=== PATIENT | female | born 1955 | race Caucasian/White ===

== ENCOUNTER 2020-03-15 15:13 | Outpatient (CLI) | payer BC, SELFPAY ==
--- NOTE | ~2020-03-15 | MM_ITS ---
EXAMINATION: MM screening samuel BI w brenda HISTORY: Screening mammogram TECHNIQUE: Craniocaudal and mediolateral oblique 3-D tomosynthesis images were obtained and synthetic 2-D images were generated. CAD analysis was submitted and interpreted. COMPARISON: 01/09/2019, 11/22/2017, 05/25/2016 bilateral digital screening mammogram examinations BREAST PARENCHYMAL COMPOSITION: There are scattered areas of fibroglandular density. FINDINGS: There is no evidence of suspicious mass, calcification, or architectural distortion to sugg est malignancy in either breast. There has been no suspicious interval change. IMPRESSION: 1. No mammographic evidence of malignancy. 2. Recommend routine screening mammography in one year. BI-RADS Category 1: Negative Reviewed, dictated and finalized at location A.
== END 2020-03-15 15:14 | disposition home or self-care (01) ==
LOC: ANHIMG 15:18
PROVIDERS: PCP Internal Medicine; Visit Provider Nurse Practitioner Obstetrics & Gynecology
DX: Z12.31 Encounter for screening mammogram for malignant neoplasm of breast (principal)
CPT/HCPCS: 77063; 77067

== ENCOUNTER 2020-05-11 01:37 | Outpatient (CLI) | payer BC, SELFPAY ==
[2020-05-11 18:01] LABS: SARS-CoV-2 RNA PCR Negative
== END 2020-05-11 01:38 | disposition home or self-care (01) ==
LOC: ANHCOVIDDT 01:37
PROVIDERS: PCP Internal Medicine; Visit Provider Surgery Plastic and Reconstructive Surgery
DX: Z01.812 Encounter for preprocedural laboratory examination (principal); Z20.828 Contact with and (suspected) exposure to other viral communicable diseases
CPT/HCPCS: 87635; C9803; U0003

== ENCOUNTER 2020-05-14 02:45 | Day surgery (SDC) | payer BC, SELFPAY ==
[2020-04-30 09:24] VITALS: BMI 25.0
[2020-05-14] VITALS (9 sets, daily range): BP systolic 118–139; BP diastolic 61–77; PULSE 60–89; RESP 12–18; TEMP 36.2; O2SAT 94–100; BMI 25.3
--- NOTE | 2020-05-14 11:01 | WPDANESEPPF ---
Anes - Initial Pre Proc Eval Procedure: Operation Date: 05/14/20 12:30 Proposed Procedures p Bilateral Reduction Mammoplasty - Levon Sims MD Date/Time: 05/14/20 11:01 Surgeon: Levon Sims MD Pre Op Diagnosis: Macromastia Patient Data Age: 64 Gender: F Height: 5 ft 7 in Weight: 73.4 kg Allergies Allergy/AdvReac Type Severity Reaction Status Date / Time No Known Allergies Allergy Verified 05/14/20 10:29 Home Medications Medication Instructions Recorded Confirmed Type alprazolam 0.5 mg tablet 0.5 mg PO DAILY PRN 11/20/19 05/14/20 History fluoxetine 20 mg capsule 20 mg PO DAILY #90 cap 11/20/19 05/14/20 Rx levothyroxine 75 mcg tablet 75 mcg PO DAILY #90 tablet 11/20/19 05/14/20 Rx diphenhydramine HCl [Benadryl] 25 mg PO DAILY PRN 04/30/20 05/14/20 History docusate sodium 100 mg capsule 100 mg PO BID #14 cap 05/06/20 Rx hydrocodone 5 mg-acetaminophen 325 1 tablet PO Q6H PRN #15 tablet 05/06/20 05/06/20 Rx mg tablet ondansetron HCl 4 mg tablet 4 mg PO Q6H PRN #30 tablet 05/06/20 Rx Laboratory Tests 05/14/20 10:44 Cotinine Pending Patient hx anesthesia problems: post op nausea/vomiting Family hx anesthesia problems: none PMFSH Past Medical History Medical History Anxiety Family history of cleft lip Hypothyroidism Surgical History Surgical History History of carpal tunnel release History of rhinoplasty Family History Family History Grandparent Family history of malignant neoplasm of breast Mother Family history of malignant neoplasm of breast in first degree relative, Onset Age: 84 Patient's mother is , Onset Age: 84 Other Family history of cardiovascular disease Social History Social History Smoking packs per day: 0.5 Smoking cigarettes per day: 10.0 Years smoked: 20 Smoking pack-years: 10.00 Smoking status: Former smoker Additional smoking assessment comments: QUIT 1999 Alcohol intake: current Drinks per week: 2 Substance use: never Spiritual care concerns: No Anes - Eval Final PreProcedure Day of Procedure 05/14/20 11:01 Patient weight: normal Heart: regular rate and rhythm Lungs: clear to auscultation Airway: Mallampati scale class II Neurological: alert and oriented ASA classification: II Emergent: no Anesthetic plan: proceed Anesthesia type and monitoring: general LMA and standard monitoring Informed Consent: The patient's anesthetic plan and its attendant risks and benefits were discussed with the patient/family/POA. Questions were solicited and answers provided to the satisfaction of the patient/family/POA.
[2020-05-14] MEDS: LACTATED RINGERS 1,000 ML 30 ML IV CONT ×2 (11:05→14:29)
[2020-05-14] MEDS: SCOPOLAMINE 1.5 MG PATCH TRANSDERM (11:07)
[2020-05-14 11:09] LABS: Urine Cotinine NEGATIVE
--- NOTE | 2020-05-14 11:33 | WPDHPUPDATE1 ---
History and Physical Update Update Date/Time: 05/14/20 11:33 History and Physical has been reviewed, including an updated exam of the patient. There are NO changes in the patient's condition. Risks, benefits, and alternatives have been discussed and questions answered. Patient agrees to proceed with procedure.
[2020-05-14] MEDS: ceFAZolin 2 GM/D5W 50 ML 2 GM/50 ML BAG IVPB (12:11)
--- NOTE | 2020-05-14 14:14 | SUR.OPER ---
EBL:50cc
--- NOTE | 2020-05-14 14:24 | PM.PROC ---
Procedure Note - Detailed Date of procedure: 05/14/20 Pre-op diagnosis: Macromastia Post-op diagnosis: same Procedure performed: Bilateral breast reduction Description of procedure: She is here today for bilateral breast reduction. Previously and again today the risks, benefits, alternatives were discussed in extensive detail. I wanted her to be very realistic about the risks involved as well as expectations. We discussed aftercare and what to monitor for. She understands we can never guarantee final breast size and there will always be asymmetry. I was very upfront and honest about the risks of sensation change and even nipple loss (). Made sure answered all of her questions to her satisfaction today and consent was obtained. She was marked in the preoperative holding area with their verification. The patient was taken to the operating room placed supine on the operating table. Anesthesia was provided by anesthesiology. She was prepped and draped in a standard sterile fashion. A surgical time-out was taken. Stab incisions were made and I tumessed with a tumescent solution. I marked out the nipple-areolar complex at 42 mm. I then de-epithelialized the pedicle. The pedicle was well left well more than 2 cm in thickness. I then removed the inferior portion of the breast as well as the central keel to get shape based on preoperative planning. At this point copiously irrigated with saline solution and verified a strict hemostasis. I reapproximated the pillars using a 2-0 PDS as well as along the IMF. I tailor tacked the breast into place with carmen. She was placed in a sitting position. I verified the nipple-areolar complex position based on preoperative markings, intraoperative measurements, and observation which were in full agreement. This nipple-areolar complex was marked at 42 mm in size. I then placed supine and de-epithelialized this. Nipple-areolar complex was inset with 3-0 Monocryl. I closed the vertical incision with 3-0 Monocryl in the IMF with 3-0 stratafix. Then everything was closed using a running subcuticular 4-0 Monocryl followed by Steri-Strips. A dressing was placed followed by surgical bra. Patient was awoke and taken to PACU without difficulty. All instrument sponge counts were correct at the end of the case. Anesthesia: GLMA Surgeon: Levon Sims MD Estimated blood loss (mL): 20 Drains: No Packing: No Pathology: yes Complications: No immediate complications Condition: stable Disposition: PACU Findings: Superior pedicle Tissue removed Right: 439 grams Left: 400 grams
== END 2020-05-14 16:12 | disposition home or self-care (01) ==
PROVIDERS: PCP Internal Medicine; Visit Provider Surgery Plastic and Reconstructive Surgery
PROC: 0HBV0ZZ Excision of Bilateral Breast, Open Approach (ICD-10-PCS; CPT 19318; principal; 2020-05-14 12:30)
DX: N62 Hypertrophy of breast (principal); N60.32 Fibrosclerosis of left breast; N60.42 Mammary duct ectasia of left breast; N60.22 Fibroadenosis of left breast; F41.9 Anxiety disorder, unspecified; E03.9 Hypothyroidism, unspecified; Z79.899 Other long term (current) drug therapy; Z87.891 Personal history of nicotine dependence
CPT/HCPCS: 19318; 36415; 80307; 88305; A9270; J0171; J0690; J1100; J1170; J2250; J2405; J2704; J3010; J7120

== ENCOUNTER → 2022-05-11 10:19 | Outpatient (CLI) | payer MEDICARE, OTHER, SELFPAY ==
--- NOTE | ~2022-05-11 | MM_ITS ---
EXAMINATION: MM screening samuel BI w brenda HISTORY: Screening mammogram TECHNIQUE: Craniocaudal and mediolateral oblique 3-D tomosynthesis images were obtained and synthetic 2-D images were generated. CAD analysis was submitted and interpreted. COMPARISON: 03/15/2020, 01/09/2019, 11/22/2017 bilateral screening mammogram examinations BREAST PARENCHYMAL COMPOSITION: There are scattered areas of fibroglandular density. FINDINGS: There is no evidence of suspicious mass, calcification, or architectural distortion to sugg est malignancy in either breast. There has been no suspicious interval change. IMPRESSION: 1. No mammographic evidence of malignancy. 2. Recommend routine screening mammography in one year. BI-RADS Category 1: Negative Reviewed, dictated and finalized at location A.
== END ==
PROVIDERS: PCP Family Medicine; Visit Provider Family Medicine
DX: Z12.31 Encounter for screening mammogram for malignant neoplasm of breast (principal)
CPT/HCPCS: 77063; 77067

== ENCOUNTER → 2022-07-30 09:47 | Outpatient (CLI) | payer MEDICARE, OTHER, SELFPAY ==
--- NOTE | ~2022-07-30 | DEXA_ITS ---
Bone Density Report Name: ASHLEY HARE Age: 66 Sex: Female Ethnicity: White Date of : 1955 Indication: osteopenia; parental hip fracture; height loss; postmenopausal Referring Provider: ELISSA WADE Study: Bone densitometry was performed. Exam Date: July 30, 2022 Accession number: [id number] Bone Density: Region BMD T-score Z-score Classification AP Spine (L1-L4) 0.887 -1.5 0.4 Osteopenia Femoral Neck (Left) 0.612 -2.1 -0.6 Osteopenia Total Hip (Left) 0.775 -1.4 -0.1 Osteopenia Femoral Neck (Right) 0.634 -1.9 -0.4 Osteopenia Total Hip (Right) 0.785 -1.3 0.0 Osteopenia Total Hip Mean 0.780 -1.4 -0.1 Osteopenia World Health Organization criteria for BMD impression classify patients as: Normal (T-score at or above -1.0), Osteopenia (T-score between -1.0 and -2.5), or Osteoporosis (T-score at or below -2.5). 10-year Fracture Risk(1): Major Osteoporotic Fracture 20% Hip Fracture 2.3% Reported Risk Factors: [place] (), Neck BMD=0.612, BMI=24.2, parental fracture (1) FRAX(R) Version 3.08. Fracture probability calculated for an untreated patient. Fracture probability may be lower if the patient has received treatment. Previous Exams: Region Exam Age BMD T-score BMD Change BMD Change Date g/cm2 vs Baseline vs Previous AP Spine(L1-L4) 07/30/2022 66 0.887 -1.5 0.038* 0.069* 05/25/2016 60 0.818 -2.1 -0.032* -0.032* 12/22/2010 55 0.849 -1.8 Total Hip(Left) 07/30/2022 66 0.775 -1.4 -0.018 -0.008 01/09/2019 63 0.783 -1.3 -0.010 -0.011 05/25/2016 60 0.794 -1.2 0.001 0.001 12/22/2010 55 0.793 -1.2 Total Hip(Right) 07/30/2022 66 0.785 -1.3 -0.006 0.014 01/09/2019 63 0.771 -1.4 -0.021 -0.023 05/25/2016 60 0.794 -1.2 0.003 0.003 12/22/2010 55 0.791 -1.2 *Denotes significance at 95% confidence level, LSC for AP Spine = 0.022 g/cm2, LSC for Total Hip = 0.027 g/cm2 Clinical Information Provided by Patient: Parent has had a hip fracture Has used the following medications: Vitamin D Patient maximum height was 68 Menopause Age: 52 Does not regularly consume dairy products Drinks caffeinated beverages Onset of menses at age 12 Number of children 0 Impression: The patient has low bone mass, based on the Left Femoral Neck T-score. Th
== END ==
PROVIDERS: PCP Family Medicine; Visit Provider Family Medicine
DX: Z78.0 Asymptomatic menopausal state (principal); M85.88 Other specified disorders of bone density and structure, other site; M85.852 Other specified disorders of bone density and structure, left thigh; M85.851 Other specified disorders of bone density and structure, right thigh
CPT/HCPCS: 77080

== ENCOUNTER 2022-12-24 01:27 | Day surgery (SDC) | payer OTHER, SELFPAY ==
[2022-12-17 08:30] VITALS: BMI 23.2
--- NOTE | 2022-12-17 08:40 | PC.NURSE ---
Report to the Outpatient Waiting Room, entrance under the green pavilion located off [facility], at time _0600_ on date _12/24/22_. Planned Procedure Time: ___30 . Time changes happen often and if your time is changed the preop area will call you the afternoon before. - You and your visitor will be asked to self-screen and do not enter if you have any COVID symptoms. - Only one visitor is requested with a max of two and NO children visitors are allowed at this time. - The patient visitor may be requested to leave or wait in car when not with patient due to distancing restrictions. - A mask is optional within the hospital at this time. -VISITING HOURS 8AM-8PM Patients may have clear liquids (water, carbonated beverages, clear teas, apple juice) until 3 hours prior to surgery (0430 AM) with a maximum of 20 ounces. - No food from midnight until time of surgery - Infants may have breast milk until 4 hours before surgery, infant formula 6 hours prior to surgery. - Children will be allowed to drink immediately following surgery. If applicable, please bring a bottle or sippy cup to assist with drinking. Juice, water, soda, and popsicles are readily available. For infants on formula, please bring formula the day of surgery. Pacifiers are allowed. Take the following medications with a SIP of water the morning of surgery: _FLUOXETINE, LEVOTHYROXINE_ DO NOT STOP ANY OF YOUR OTHER PRESCRIPTION MEDICATIONS PRIOR TO SURGERY ?EXCEPT THE FOLLOWING Medications to discontinue per ANESTHESIA -_MULTIVITAMIN & PROBIOTIC 3 DAYS PRIOR TO SURGERY__ Date to take last dose 12/20/22 Please no make-up, nail mongolian, hairspray, perfume, deodorant, or body powder the day of surgery. No jewelry (including any body piercings) or valuables the day of surgery, leave them at home. Please take a shower or bath the night before, or the morning of, surgery with an antibacterial soap. Wear comfortable, loose fitting clothing. Children are encouraged to wear pajamas. - Jewelry must be removed prior to entering the operating room. Rings and piercings that are not removed may be cut off. - The hospital will not accept responsibility for valuables. - Please leave all valuables, including medications, at home the day of surgery. If you are going home after surgery, a licensed bus van driver must drive you home. - NO public transportation without another adult if you receive anesthesia. - We recommend that an adult stay with you for 24 hours following discharge. - We also recommend that you do not drive, make important decision, drink alcoholic beverages, or take any drugs that were not prescribed by your health care provider for at least 24 hours after your discharge time. For Pediatric surgeries, we recommend two adults accompany the child home. Follow any additional instructions given to you from your surgeon. If you or anyone in your household have experienced Covid symptoms in the past week, please notify your surgeon or the nurse liaison at the phone number below for possible testing. Telephone instructions given to ___PATIENT and asked if any additional questions and then verbalized understanding. Patient advised to call surgeon office or pre surgery nurse liaison [phone] if any additional questions.
[2022-12-24] VITALS (11 sets, daily range): BP systolic 102–123; BP diastolic 49–88; PULSE 62–111; RESP 11–18; TEMP 36.1–36.7; O2SAT 92–100
--- NOTE | 2022-12-24 06:48 | WPDANESEPPF ---
Anes - Initial Pre Proc Eval Procedure: Operation Date: 12/24/22 07:30 Proposed Procedures p Abdominoplasty without Muscle Repair with Liposuction - Levon Sims MD Date/Time: 12/24/22 06:48 Surgeon: Levon Sims MD Pre Op Diagnosis: skin laxity, localized adiposity Patient Data Age: 67 Gender: F Height: 1.7 m Weight: 67.27 kg Allergies Allergy/AdvReac Type Severity Reaction Status Date / Time No Known Allergies Allergy Verified 12/24/22 06:30 Home Medications Medication Instructions Recorded Confirmed Type fluoxetine 20 mg capsule See Rx Instructions .Route 09/07/22 12/24/22 Rx .COMPLEX #90 caps levothyroxine 75 mcg tablet See Rx Instructions .Route 09/07/22 12/24/22 Rx .COMPLEX #90 tabs Probiotic 2 gummy DAILY 12/17/22 12/24/22 History multivitamin 1 tablet PO DAILY 12/17/22 12/24/22 History Laboratory Tests 12/24/22 06:37 Cotinine Pending Patient hx anesthesia problems: none Family hx anesthesia problems: none Results Review: All pre-operative results and documents have been reviewed as part of the pre-operative evaluation. [facility] Past Medical History Medical History (Updated 12/24/22 @ 06:49 by Rowdy Blunt MD) Anxiety Anxiety disorder, unspecified Chronic neck pain Chronic pain of both shoulders Family history of cleft lip Hypothyroidism Mastodynia TEOFILO on CPAP Personal history of other malignant neoplasm of rectum, rectosigmoid junction, and anus Vitamin D deficiency Surgical History Surgical History (Updated 12/24/22 @ 06:49 by Rowdy Blunt MD) H/O cleft lip repair History of bilateral breast reduction surgery History of carpal tunnel release History of rhinoplasty Family History Family History Grandparent Family history of malignant neoplasm of breast Mother Family history of malignant neoplasm of breast in first degree relative, Onset Age: 84 Patient's mother is , Onset Age: 84 Other Family history of cardiovascular disease Social History Social History Social History: Smoking packs per day: 0.5 Smoking cigarettes per day: 10.0 Years smoked: 20 Smoking pack-years: 10.00 Smoking status: Former smoker Tobacco type: cigarettes Second hand tobacco smoke exposure: No Additional smoking assessment comments: QUIT 2000 Alcohol intake: current Drinks per week: 3 Alcohol use details: Socially Substance use: never Substance use type: does not use Living arrangements: alone Occupation/Education: occupation 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 Gender identity (if verbalized by the patient): Female Sexual Orientation (if Verbalized by the Patient): Straight or Heterosexual Spiritual care concerns: No Anes - Eval Final PreProcedure Day of Procedure 12/24/22 06:48 Patient weight: normal Heart: regular rate and rhythm Lungs: clear to auscultation Airway: Mallampati scale class II and special considerations retrognathia Neurological: alert and oriented Last oral intake: >/= 8 hours ASA classification: II Emergent: no Anesthetic plan: proceed Anesthesia type and monitoring: general ETT and standard monitoring Results Review: All pre-operative results and documents have been reviewed as part of the pre-operative evaluation. Informed Consent: The patient's anesthetic plan and its attendant risks and benefits were discussed with the patient/family/POA. Questions were solicited and answers provided to the satisfaction of the patient/family/POA.
--- NOTE | 2022-12-24 06:58 | P.OP_ITS ---
Procedure Note - Detailed Date of Procedure 12/24/22 Pre-op Diagnosis skin laxity, localized adiposity Post-op Diagnosis Same Procedure Performed Progressive tension abdominoplasty with suction lipectomy Surgeon Levon Sims MD Anesthesia General Findings Tissue removed: 925 grams Lipoaspirate: 1500 cc No diastasis repair (per patient request) Description of Procedure They are here today for abdominoplasty. Previously and again today the risks, benefits, alternatives were discussed in extensive detail. I wanted them to be very realistic about the risks involved as well as expectations. We discussed aftercare and what to monitor for. I was very upfront about the risks of wound breakdown leading to loss of skin, open wounds, and need for additional procedures with permanent abdominal deformity. We discussed DVT/PE risks and management. Made sure answered all of their questions to their satisfaction today and consent was obtained. They were marked in the preoperative holding area with their verification. The patient was taken to the operating room placed supine on the operating table. Anesthesia was provided by anesthesiology. A Quick catheter was started. They were prepped and draped in a standard sterile fashion. A surgical time-out was taken. I placed the patient in a flexed position to verify the upper and lower markings would reach. I then placed supine. A thorough abdominal examination was completed. Stab incisions were made and tumescent solution infiltrated. Once adequate time was allowed for hemostasis a 5mm basket cannula was utilized to complete suction lipectomy based on S.A.F.E. technique in multiple planes and passes. Actual aspiration was with a 3mm multihole cannula. There were turned to bilateral lateral decubitus position with care taken to protect them for injury during this process. Suction lipectomy continued to result based on pre- operative planning, intra-operative observation, and rolling pinch test which were in full agreement. A 10 blade was used to make the upper incision. I continued dissection down to the level of fascia. Elevated just what was necessary for repair of the diastasis. I then again flexed the bed to verify the upper skin flap would reach the lower markings without tension. Once verified I placed her supine once again and a 10 blade used to make the lower incision. I elevated up to level the umbilicus and left the umbilicus intact on a well-vascularized stalk. The intervening tissue was removed. A 2 mm blunt cannula with 0.5% bupivicaine was injected deep to the fascia bilaterally. The patient was flexed and starting from superior to inferior began plication using 2-0 Vicryl to obliterate all space in a standard progressive tension fashion. At the umbilicus I marked out the location of the skin and inset this with 3-0 Monocryl and 4-0 Vicryl. I continued the remainder of the plication using 2-0 Vicryl until I reached my lower planned scar line. I trimmed any excess skin of the upper flap making sure this was a tension-free closure. I then approximated using a 3 point suture with 2-0 Vicryl followed by 3-0 stratafix ,running subcuticular 4-0 Monocryl, and tissue glue. Fluffs and an abdominal binder were placed. The patient was transferred to the bed in a flexed position. Awoken and taken to the PACU without difficulty. All instrument and sponge counts were correct at the end of the case. Estimated Blood Loss 75 Drains No Packing No Pathology None sent Complications No immediate complications Condition Stable Disposition PACU
--- NOTE | 2022-12-24 06:58 | WPDHPUPDATE1 ---
History and Physical Update Update Date/Time: 12/24/22 06:58 History and Physical has been reviewed, including an updated exam of the patient. There are NO changes in the patient's condition. Risks, benefits, and alternatives have been discussed and questions answered. Patient agrees to proceed with procedure.
[2022-12-24] MEDS: SCOPOLAMINE 1.5 MG PATCH TRANSDERM (07:13)
[2022-12-24] MEDS: LACTATED RINGERS 1,000 ML 30 ML IV CONT ×2 (07:13→11:11)
[2022-12-24 07:22] LABS: Urine Cotinine NEGATIVE
[2022-12-24] MEDS: LACTATED RINGERS IRRIG 1,000 ML, LIDOCAINE HCL 1% LOCAL INJ 50 ML, EPINEPHrine HCL INJ ... INFILTRATE (07:29)
[2022-12-24] MEDS: BUPIVACAINE/EPINEPHRINE 0.25% 50 ML VIAL 60 ML INFILTRATE (07:29)
[2022-12-24] MEDS: ceFAZolin 2 GM/D5W 50 ML 2 GM/50 ML BAG IVPB (07:29)
[2022-12-24] MEDS: TRANEXAMIC ACID 1,000MG/ISO100 1,000 MG/100 ML BAG 200 MG IVPB (07:46)
--- NOTE | 2022-12-24 10:37 | SUR.OPER ---
abdominal tissue:[id number].
--- NOTE | 2022-12-24 10:45 | SUR.OPER ---
EBL:50ml, Urine:325ml
--- NOTE | 2022-12-24 11:43 | SUR.PHASEI ---
1141: Simple mask removed.
--- NOTE | 2022-12-24 12:09 | SUR.PHASEI ---
RN tried to call report to floor RN. She's unavailable for report at this time and will have to call back.
[2022-12-24] MEDS: fentaNYL CITRATE INJ (*CRX) 100 MCG/2 ML VIAL 25 MCG IV PUSH (12:16)
--- NOTE | 2022-12-24 12:50 | PC.NURSE ---
This patient, Rochelle Zamora, was received from PACU via bed on 12/24/22 at 1250. Patient/family oriented to unit policies and routines
[2022-12-24] MEDS: carisoprodoL (*CRX) 350 MG TABLET PO ×2 (14:08→19:45)
[2022-12-24] MEDS: LACTATED RINGERS 1,000 ML 125 ML IV CONT (14:09)
[2022-12-24] MEDS: KETOROLAC 15 MG/ML VIAL (*BKC) IV PUSH ×2 (15:00→22:56)
[2022-12-24] MEDS: ENOXAPARIN 40 MG/0.4 ML SYRINGE SUB-Q (17:45)
[2022-12-24] MEDS: oxyCODONE/ACETAMINOPHEN (*CRX) 5-325 MG TABLET PO (20:19)
[2022-12-24] MEDS: DOCUSATE SODIUM 100 MG CAPSULE PO (20:20)
[2022-12-25] MEDS: carisoprodoL (*CRX) 350 MG TABLET PO ×2 (03:19→09:19)
[2022-12-25 03:27] VITALS: BP 94/42; PULSE 75; RESP 16; TEMP 36.8; O2SAT 100
[2022-12-25] MEDS: oxyCODONE/ACETAMINOPHEN (*CRX) 5-325 MG TABLET PO ×2 (05:40→11:42)
--- NOTE | 2022-12-25 07:01 | WPDPN ---
Progress Note: A&P Assessment and Plan (1) Skin laxity: Code(s): L57.4 - Cutis laxa senilis Status: Acute Assessment and Plan: Doing well after progressive tension abdominoplasty with suction lipectomy. Will plan for discharge home. Follow-up next week. Call with any questions or concerns. Today we had a lengthy discussion about the care. Activity limitations. What to monitor for. This was a lengthy opened conversation answering all questions. We discussed what is a medical emergency and when to proceed to ER / dial 911. Call with all other questions / concerns. Will see her back. (2) Localized adiposity: Code(s): E65 - Localized adiposity Status: Acute Subjective Date/time seen: 12/25/22 06:05 Interval history: She has done well after progressive tension abdominoplasty with suction lipectomy (no muscle repair). No n/v. No f/c. No SOB. No chest pain. No calf tenderness. Has ambulated and tolerated diet. Review of Systems Review of Systems: All systems reviewed & are unremarkable except as noted in HPI and below Exam Narrative: Alert & Oriented NOD Respiratory unlabored Abdomen healing well. No signs of infection. No hematoma. No seroma. Good color / cap refill. No calf tenderness. Negative Daphne's Objective Data Vital Signs Vital Signs: Vital Signs - 24 hr 12/24/22 07:11 12/24/22 11:11 12/24/22 11:25 Temperature 36.1 C L 36.6 C Pulse Rate 62 96 85 Respiratory Rate 16 13 14 Blood Pressure 121/54 L 105/53 L 119/59 L Pulse Oximetry 100 99 100 Oxygen Delivery Room Air Simple Face Mask Simple Face Mask Oxygen Flow Rate 6 6 12/24/22 11:40 12/24/22 11:55 12/24/22 12:10 Temperature Pulse Rate 80 83 81 Respiratory Rate 11 L 12 16 Blood Pressure 118/65 109/62 108/88 Pulse Oximetry 100 96 97 Oxygen Delivery Simple Face Mask Room Air Room Air Oxygen Flow Rate 6 12/24/22 12:25 12/24/22 12:55 12/24/22 17:40 Temperature 36.7 C Pulse Rate 75 111 H 86 Respiratory Rate 13 16 18 Blood Pressure 115/64 103/77 110/63 Pulse Oximetry 92 96 Oxygen Delivery Room Air Oxygen Flow Rate 12/24/22 19:58 12/24/22 19:58 12/24/22 23:06 Temperature 36.6 C Pulse Rate 89 Respiratory Rate 18 Blood Pressure 123/64 Pulse Oximetry 96 Oxygen Delivery Room Air Room Air Oxygen Flow Rate 12/24/22 23:06 12/25/22 03:27 12/25/22 03:27 Temperature 36.4 C 36.8 C Pulse Rate 72 75 Respiratory Rate 18 16 Blood Pressure 102/49 L 94/42 L Pulse Oximetry 96 100 Oxygen Delivery Room Air Oxygen Flow Rate Intake/Output Intake/Output: Intake & Output 12/22/22 12/23/22 12/24/22 12/25/22 23:59 23:59 23:59 23:59 Intake Total 1000 100 Output Total 1770 250 Balance -770 -150 Meds/Results Medications: Active Medications Generic Name Dose Route Start Last Admin Trade Name Freq PRN Reason Stop Dose Admin Carisoprodol 350 mg 12/24/22 12:00 12/25/22 03:19 Carisoprodol (*Crx) 350 Mg Tablet PO 350 mg Q6HR JOY Administration Diazepam 5 mg 12/24/22 10:57 Diazepam (*Crx) 5 Mg Tablet PO TID PRN Anxiety Docusate Sodium 100 mg 12/24/22 21:00 12/24/22 20:20 Docusate Sodium 100 Mg Capsule PO 100 mg Q12HR JOY Administration Enoxaparin Sodium 40 mg 12/24/22 18:00 12/24/22 17:45 Enoxaparin 40 Mg/0.4 Ml Syringe SUB-Q 40 mg DAILY JOY Administration Lactated Ringer's 1,000 mls @ 125 mls/hr 12/24/22 11:00 12/25/22 06:48 Lr - Lactated Ringers Iv IV CONT Not Given .Q8H [facility] Ketorolac Tromethamine 15 mg 12/24/22 10:57 12/24/22 22:56 Ketorolac 15 Mg/Ml Vial (*Bkc) IV PUSH 15 mg Q6H PRN Administration Pain Rated 4-6 Levothyroxine Sodium 75 mcg 12/25/22 06:30 Levothyroxine Sodium 75 Mcg Tablet BY MOUTH DAILY@0630 [facility] Morphine Sulfate 2 mg 12/24/22 10:57 Morphine Sulfate (*Crx) 2 Mg/Ml Inj IV PUSH Q2H PRN Pain Multivitamins Therapeutic 1
--- NOTE | 2022-12-25 07:10 | P.DS_ITS ---
DS: Admitting Diagnosis Discharge Date 12/25/2022 Admitting Diagnosis Skin Laxity Localized Adiposity DS: Discharge Diagnosis Discharge Diagnosis (1) Skin laxity: Code(s): L57.4 - Cutis laxa senilis Status: Acute (2) Localized adiposity: Code(s): E65 - Localized adiposity Status: Acute DS: Summary Hospital Course Hospital Course: Underwent progressive tension abdominoplasty with suction lipectomy. Postoperatively has done well. Will discharge home. Time Spent with Patient Time attestation: Total time spent providing and/or coordinating discharge services: Exam Narrative: Alert & Oriented NOD Respiratory unlabored Abdomen healing well. No signs of infection. No hematoma. No seroma. Good color / cap refill. No calf tenderness. Negative Daphne's DS: Data Data Completed and Pending Labs on day of discharge: Labs from last 24 hours 12/24/22 06:37 Cotinine Negative Discharge Plan Discharge Patient Disposition: Home, Self-Care Discharge Instructions: POST OPERATIVE DISCHARGE INSTRUCTIONS LEVON SIMS M.D. [facility] [address] [place] [address] * No driving for 24 hours after anesthesia and while you are taking pain medication. * Take all prescribed medication as directed * Diet as tolerated. * No lifting or activity that raises blood pressure for 48 hours. * Regular walking / ambulation. * May shower 24 hours after surgery. Once you shower do not take pain medication before showering as the combination of medication and heat may cause you to feel dizzy or pass out. * No pools or tubs for 2 weeks. * Slowly stand up straight as tolerated. * No straining or lifting more than 20 pounds. * If no bowel movement within 24 hours may use laxative. * Call with any questions or concerns. * Dressing Care: Continue abdominal binder / foam 23 hours per day. If you have any questions or concerns, please call the office . If it is after hours you will be directed to the business relations manager exchange. Shortness of breath, chest pain, or other medical emergency dial 911 / proceed to the Emergency Room. Stand Alone Forms: General Discharge Instructions Follow-up/Referrals: Levon Sims MD [Physician] - 1 Week Discharge Medications: Continued multivitamin Tablet 1 tablet PO DAILY Probiotic 2 gummy DAILY levothyroxine 75 mcg tablet See Rx Instructions .ROUTE .COMPLEX Qty: 90 1RF Dose Instruction: TAKE 1 TABLET BY MOUTH EVERY DAY Rx Instructions: TAKE 1 TABLET BY MOUTH EVERY DAY fluoxetine 20 mg capsule See Rx Instructions .ROUTE .COMPLEX Qty: 90 1RF Dose Instruction: TAKE 1 CAPSULE BY MOUTH ONCE DAILY Label Comments: QAM Rx Instructions: TAKE 1 CAPSULE BY MOUTH ONCE DAILY
[2022-12-25] MEDS: LEVOTHYROXINE SODIUM 75 MCG TABLET BY MOUTH (07:13)
[2022-12-25 07:45] VITALS: BP 100/46; PULSE 80; RESP 18; TEMP 37.3; O2SAT 97
[2022-12-25] MEDS: DOCUSATE SODIUM 100 MG CAPSULE PO (09:19)
[2022-12-25] MEDS: MULTIVITAMINS THERAPEUTIC TAB (*BKC) 1 TABLET PO (09:19)
--- NOTE | 2022-12-25 09:43 | WPDANESPN ---
Anes - Prog Note Post-Op Date/Time: 12/25/22 09:43 Cardiovascular status: normal Respiratory status: normal Airway patency: baseline Mental status: baseline Post-Op hydration status: normal Vital Signs: Last Vital Signs Temp 36.8 C 12/25/22 03:27 Pulse 75 12/25/22 03:27 Resp 16 12/25/22 03:27 BP 94/42 L 12/25/22 03:27 Pulse Ox 100 12/25/22 03:27 O2 Del Method Room Air 12/25/22 03:27 O2 Flow Rate 6 12/24/22 11:40 Pain Score (VAS): 12/04 I/O: Intake & Output 12/24/22 12/25/22 12/25/22 23:59 07:59 15:59 Intake Total 900 100 Output Total 1590 250 Balance -690 -150 Post-procedural complaints: none Patient Feedback: Patient satisfied with anesthetic care.
== END 2022-12-25 11:50 | disposition home or self-care (01) ==
LOC: ANHSURGERY 07:01 → ANHOB2 12:48
PROVIDERS: PCP Family Medicine; Visit Provider Surgery Plastic and Reconstructive Surgery
PROC: (CPT 15877; principal; 2022-12-24 07:30)
DX: Z41.1 Encounter for cosmetic surgery (principal); L57.4 Cutis laxa senilis; E65 Localized adiposity; E03.9 Hypothyroidism, unspecified; G47.33 Obstructive sleep apnea (adult) (pediatric); F41.9 Anxiety disorder, unspecified; Z85.048 Personal history of other malignant neoplasm of rectum, rectosigmoid junction, and anus; Z87.891 Personal history of nicotine dependence
CPT/HCPCS: 15877; 15830; 15847; 80307; 99199; A9270; J0171; J0690; J1100; J1170; J1650; J1885; J2250; J2370; J2405; J2704; J2710; J3010; J7120

== ENCOUNTER → 2023-07-30 13:08 | Outpatient (CLI) | payer MEDICARE, OTHER, SELFPAY ==
--- NOTE | ~2023-07-30 | MM_ITS ---
EXAMINATION: MM screening samuel BI w brenda HISTORY: Screening mammogram, family history of breast cancer in her mother. TECHNIQUE: Craniocaudal and mediolateral oblique 3-D tomosynthesis images were obtained and synthetic 2-D images were generated. CAD analysis was submitted and interpreted. COMPARISON: 05/11/2022, 03/15/2020, 01/09/2019 BREAST PARENCHYMAL COMPOSITION: There are scattered areas of fibroglandular density. FINDINGS: No suspicious mass, calcification, or architectural distortion are identified in either ingrid ast to suggest malignancy. There has been no suspicious interval change. IMPRESSION: 1. No mammographic evidence of malignancy. 2. Recommend routine screening mammography in one year. BI-RADS Category 1: Negative Reviewed, dictated and finalized at location A.
== END ==
PROVIDERS: PCP Physician Assistant; Visit Provider Physician Assistant
DX: Z12.31 Encounter for screening mammogram for malignant neoplasm of breast (principal)
CPT/HCPCS: 77063; 77067

== ENCOUNTER 2024-04-13 14:41 | Outpatient (CLI) | payer MEDICARE, OTHER, SELFPAY ==
--- NOTE | 2024-04-13 14:47 | ECHO_ITS ---
Patient Info Name: Rochelle Zamora Age: 68 years : 1955 Gender: Female Ht: 67 in Wt: 150 lbs BSA: 1.80 m2 HR: 75 bpm BP: 135 / 88 mmHg Heart Rhythm: Sinus Rhythm Technical Quality: Fair Exam Date: 04/13/2024 3:00 PM Exam Location: Echo Lab Patient Status: Outpatient Admit Date: 04/13/2024 Staff Ordering Physician: Marissa Meneses MD Tape Editor: Adi Livingston RDCS Attending Provider: Marissa Meneses MD Referring Physician: Gideon HOYT; Exam Type: CA echo doppler color flow Study Info Indications - murmur Complete two-dimensional, color flow and Doppler transthoracic echocardiogram is performed. Summary 1. Complete two-dimensional, color flow and Doppler transthoracic echocardiogram is performed. 2. Left ventricular chamber dimension is normal. 3. Left ventricular systolic function is normal, estimated at 65-70%. 4. The left ventricular diastolic function is grade I diastolic dysfunction. 5. E/e' 8 is minimally elevated. 6. There is trace tricuspid valve regurgitation. 7. No pulmonary hypertension, estimated pulmonary arterial systolic pressure is 30 mmHg. Left Ventricle E/e' 8 is minimally elevated. Left ventricular chamber dimension is normal. Left ventricular systolic function is normal, estimated at 65-70%. The left ventricular diastolic function is grade I diastolic dysfunction. Right Ventricle Right ventricular systolic function is normal and with normal TAPSE 2.3 cm. Right ventricular chamber dimension is normal. Left Atria Left atrial chamber dimension is normal. Right Atria Right atrial chamber dimension is normal. Aortic Valve The aortic valve is not well visualized. Cannot determine number of aortic valve leaflets. There is no aortic valve stenosis based on valve area and gradients. There is no aortic valve regurgitation. Pulmonic Valve There is no pulmonic regurgitation. Mitral Valve There is no mitral valve stenosis. There is no mitral valve regurgitation. Tricuspid Valve There is trace tricuspid valve regurgitation. No pulmonary hypertension, estimated pulmonary arterial systolic pressure is 30 mmHg. Pericardium/Pleural There is no pericardial effusion. Inferior Vena Cava Normal inferior vena cava with >50% collapse upon inspiration consistent with normal right atrial pressure, 5 mmHg. Aorta The aortic root size at the sinus of Valsalva is normal. Left Ventricular Outflow Tract Name Value Normal LVOT 2D LVOT Diameter 1.9 cm LVOT Doppler LVOT Peak Gradient 8 mmHg LVOT Mean Gradient 4 mmHg LVOT VTI 26 cm LVOT VTI/AV VTI Ratio 0.9 LVOT Stroke Volume 72 ml LVOT CO 5.1 l/min LVOT CI 2.9 l/min/m2 Pulmonic Valve Name Value Normal PV Doppler PV Peak Gradient
== END 2024-04-13 14:42 | disposition home or self-care (01) ==
LOC: ANHCARD 14:41
PROVIDERS: PCP Family Medicine; Visit Provider Family Medicine
DX: R01.1 Cardiac murmur, unspecified (principal); Z98.890 Other specified postprocedural states
CPT/HCPCS: 93306

== ENCOUNTER 2024-05-02 09:12 | Outpatient (CLI) | payer MEDICARE, OTHER, SELFPAY ==
--- NOTE | ~2024-05-02 | NM_ITS ---
EXAMINATION: NM stress w perf spect multi DATE: 05/02/2024 11:25 INDICATION: Other chest pain. Dyspnea. TECHNIQUE: Rest images were obtained following intravenous administration of 10 mCi Tc99m tetrofosmin (Myoview). The patient performed an exercise activity. At peak exercise, 31.5 mCi Tc99m tetrofosmin (Myoview) was administered intravenously, and stress images were obtained. Data was reconstructed int o short axis and horizontal and vertical long axis SPECT images. Gated SPECT images were also obtaine d. COMPARISON: None. FINDINGS: There is no definite reversible or fixed perfusion abnormality to suggest ischemia or infar ction. There is no segmental wall motion abnormality. Left ventricular ejection fraction measures > 70%. IMPRESSION: 1. No definite ischemia or infarct. 2. Normal left ventricular ejection fraction measuring >70%. Reviewed, dictated and finalized at location A.
--- NOTE | 2024-05-02 09:17 | EST_ITS ---
Patient Info Name: Rochelle Zamora Age: 68 years : 1955 Gender: Female Ht: 67 in Wt: 150 lbs BSA: 1.80 m2 HR: 61 bpm BP: 157 / 87 mmHg Heart Rhythm: Sinus Rhythm Exam Date: 05/02/2024 10:15 AM Exam Location: Echo Lab Patient Status: Outpatient Admit Date: 05/02/2024 Staff Ordering Physician: Mary Thomas PA-C Attending Provider: Mary Thomas PA-C Exercise Technologist: Monica Grijalva CT Exercise Physician: Gianluca Downing DO Exam Type: CA stress test treadmill w NM Study Info Indications R07.89 - Other chest pain A nuclear stress test was performed. Summary 1. 1. Negative Julito exercise stress test for ischemic changes by ECG criteria. 2. 2. Good functional capacity, achieving 7 METs of workload. 3. 3. Baseline hypertension. 4. 4. Appropriate HR response to exercise. 5. 5. Appropriate HR recovery at 1 minute post exercise. 6. 6. Nuclear study to follow and will be reported separately. Please correlate with it. 7. 7. Patient informed of the above results. Protocol: Julito Stress ECG Details Stage: REST Duration (min): 0 min : 51 sec Speed (mph): 0.0 Grade (%): 0 HR (bpm): 62 SBP (mmHg): 157 DBP (mmHg): 87 METS: --- Stage: REST Duration (min): 5 min : 29 sec Speed (mph): 0.0 Grade (%): 0 HR (bpm): 61 SBP (mmHg): 157 DBP (mmHg): 87 METS: --- Stage: STAGE 1 Duration (min): 1 min : 0 sec Speed (mph): 1.7 Grade (%): 10 HR (bpm): 92 SBP (mmHg): 157 DBP (mmHg): 87 METS: --- Stage: STAGE 1 Duration (min): 2 min : 0 sec Speed (mph): 1.7 Grade (%): 10 HR (bpm): 112 SBP (mmHg): 157 DBP (mmHg): 87 METS: --- Stage: STAGE 1 Duration (min): 3 min : 0 sec Speed (mph): 1.7 Grade (%): 10 HR (bpm): 115 SBP (mmHg): 187 DBP (mmHg): 85 METS: --- Stage: STAGE 2 Duration (min): 1 min : 0 sec Speed (mph): 2.5 Grade (%): 12 HR (bpm): 125 SBP (mmHg): 183 DBP (mmHg): 83 METS: --- Stage: STAGE 2 Duration (min): 2 min : 0 sec Speed (mph): 2.5 Grade (%): 12 HR (bpm): 133 SBP (mmHg): 186 DBP (mmHg): 81 METS: --- Stage: STAGE 2 Duration (min): 3 min : 0 sec Speed (mph): 2.5 Grade (%): 12 HR (bpm): 138 SBP (mmHg): 186 DBP (mmHg): 81 METS: --- Stage: RECOVERY Duration (min): 0 min : 59 sec Speed (mph): 0.0 Grade (%): 0 HR (bpm): 120 SBP (mmHg): 191 DBP (mmHg): 81 METS: --- Stage: RECOVERY Duration (min): 1 min : 59 sec Speed (mph): 0.0 Grade (%): 0 HR (bpm): 95 SBP (mmHg): 191 DBP (mmHg): 81 METS: --- Stage: RECOVERY Duration (min): 2 min : 59 sec Speed (mph): 0.0 Grade (%): 0 HR (bpm): 90 SBP (mmHg): 175 DBP (mmHg): 105 METS: --- Stage: RECOVERY Duration (min): 3 min : 59 sec Speed (mph): 0.0 Grade (%): 0 HR (bpm): --- SBP (mmHg): 175 DBP (mmHg): 105 METS: --- Stage: RECOVERY Duration (min): 4 min : 42 sec Speed (mph): 0.0 G
== END 2024-05-02 09:13 | disposition home or self-care (01) ==
PROVIDERS: PCP Family Medicine; Visit Provider Physician Assistant
DX: R07.89 Other chest pain (principal); R06.00 Dyspnea, unspecified
CPT/HCPCS: 78452; 93017; A9502

== ENCOUNTER 2025-01-18 11:00 | Outpatient (RCR) | payer MEDICARE, OTHER, SELFPAY ==
--- OUTSIDE RECORDS SUMMARY | 2025-01-19 11:54 | XMS_ITS | Encounter Summary ---
Author Organization [facility] Address [address] [place] [address] Phone Care Team Providers Care Customer Solutions Teammate Name Role Phone Cristiano Yap MD Primary Care Provider [phone] oRnnell Faustin MD Unavailable [phone] Bogdan Broderick MD Unavailable [phone] Rito Olivarez DO Primary Care Provider [phone] Marissa Meneses MD Primary Care Provider Whit Velasquez MD Primary Care Provider Encounter Details Date Type Department Care Team (Late st Contact Info) Description 12/01/2017 Orders Only [facility] ProviderLeonides MD [address] [place] [id number] Social History Tobacco Use Types Packs/Day Years Used Date Smoking Tobacco: Never Comments Unknown Sex and Gender Information Value Date Recorded Sex Assigned at Not on file Legal Sex Female 9:57 AM RATE MANAGER Gender Identity Female 11/13/2020 1:56 PM RATE MANAGER Sexual Orientation Straight 11/13/2020 1: 56 PM RATE MANAGER documented as of this encounter Plan of Treatment Scheduled Procedures Name Priority Associated Diagnoses Date/Ti me COLONOSCOPY Open Access Colon cancer screening documented as of this encounter Procedures Procedure Name Priority Date/Time Associated Diagnosis Comments GENERAL RADIOLOGY REPORT 12/01/2017 documented in this encounter Results * GENERAL RADIOLOGY REPORT (12/01/2017) Anatomical Region Laterality Modality Radiographic Chiquis ging Narrative 12/01/2017 Ordered by an unspecified provider. us Historical Provider MD NOVA XR PROCEDURES Final R esult documented in this encounter Visit Diagnoses Not on filedocumented in this encounter Additional Health Concerns Infection Onset Date Last Indicated Resolved Time COVID: Suspected 09/28/2023 09/28/2023 09/28/2023 4:56 PM RATE MANAGER documented as of this encounter Care Teams Customer Solutions Teammate Relationship Specialty Start Date End Date Cristiano Yap MD [address] [place] [address] PCP - General 12/11/16 04/07/20 Rito Olivarez DO [address] [place] [address] PCP - General 04/08/20 11/17/21 Marissa Meneses MD [address] [place] [address] PCP - General Family Medicine 11/18/21 07/03/24 Whit Velasquez MD [address] [facility] [address] [place] [address] PCP - General Internal Medicine 07/04/24 Ronnell Faustin MD [address] [place] [address] Radiation Oncologist Radiation Oncology 06/06/18 Bogdan Broderick MD [address] [place] [address] Surgeon Colon and Rectal Surgery 06/06/18 documented as of this encounter
--- OUTSIDE RECORDS SUMMARY | 2025-01-19 11:54 | XMS_ITS | Clinical Summary ---
Author Organization [facility] Address [facility] [place] [address] Care Team Providers Care Realty Loan Specialist Name Role Phone Marissa Meneses MD Primary Care Provider [phone] Social History Tobacco Use Types Packs/Day Years Used Date Smoking Tobacco: Never Assessed Comments Unknown Sex and Gender Information Value Date Recorded Sex Assigned at Not on file Legal Sex Female 12:36 PM PIGMENT PRESSER Gender Identity Not on file Sexual Orientation Not on file Plan of Treatment Health Maintenance Due Date Last Done Comments Colorectal Cancer Screening Colonoscopy (10 Years) 1955 Hepatitis C 1974 DTaP, Tdap and Td Vaccines ( 1 - Tdap) 1975 Mammogram Screening 1996 Pneumococcal Vaccine: 50+ Years (1 of 1 - PCV) 2006 Zoster Vaccines (1 of 2) 2006 Annual Medicare Wellness Visit 2021 Dexa Scan (General) 2021 COVID-19 Vaccine (4 - 2023-2 5 season) 2024 08/14/2022, 08/11/2021, 12/03/2020 RSV Immunization or 60+ Years (1 - 1-dose 75+ series) 2031 Meningococcal B Vaccine Aged Out No l onger eligible based on patient's age to complete this topic Meningococcal Vaccine Aged Out No gregorio yareli eligible based on patient's age to complete this topic RSV Immunizations Under 20 Months Aged Out No longer eligible b ased on patient's age to complete this topic Insurance MEDICARE [facility] Care Teams Realty Loan Specialist Relationship Specialty Start Date End Date Marissa Meneses MD [address] [facility] [address] [place] [address] PCP - General FAMILY PRACTICE 10/07/22
--- OUTSIDE RECORDS SUMMARY | 2025-01-19 11:54 | XMS_ITS | Referral Summary ---
Author Organization [facility] Address [address] [place] [address] Care Team Providers Care Liberal Arts Teacher Name Role Phone Bogdan Broderick MD Unavailable [phone] Whit Velasquez MD Primary Care Provider Encounters Date Type Department Care Team Description 01/09/2025 Results Follow-Up [facility] Primary Care at [address] [phone] Whit Velasquez MD 01/08/2025 3:41 PM CDT - 01/08/2025 11:59 PM CDT Hospital Encounter [address] [phone] Discharge Disposition: Discharge to home or self care 01/08/2025 3:40 PM CDT Lab [facility] Primary Care at [address] [phone] 01/08/2025 3:00 PM CDT Office Visit [facility] Primary Care at [address] [phone] Whit Velasquez MD Encounter for Medicare annual wellness exam (Primary Dx); Encounter for HCV screening test for low risk patient; Pure hypercholesterolemia; Acquired hypothyroidism; History of anal cancer; HSV infection; Generalized anxiety disorder; Age-related osteoporosis without current pathological fracture; Need for Streptococcus pneumoniae vaccination; Foreign body (FB) in soft tissue from Last 3 Months Allergies No known active allergies Medications levothyroxine (SYNTHROID, LEVOTHROID) 75 mcg tabletIndicatio ns:hypothyroidi sm Take 1 tablet (75 mcg total) by mouth college advisor before breakfast 3 8 Active simvastatin (ZOCOR) 10 mg tablet Take 1 tablet (10 mg total) by mouth daily 4 Active valACYclovir (VALTREX) 500 mg tabletIndicatio ns:HSV infection Take 1 tablet (500 mg total) by mouth daily 90 tablet 3 4 07/04/20 25 Active ALPRAZolam (XANAX) 0.25 mg tabletIndicatio ns:Generalized anxiety disorder Take 1 tablet (0.25 mg total) by mouth nightly as needed for anxiety 30 tablet 4 Active FLUoxetine (PROzac) 20 mg capsuleIndicati ons:depression Take 1 capsule (20 mg total) by mouth every morning 90 capsule 1 5 Active Active Problems Problem Noted Date Diagnosed Date Age-related osteoporosis wit hout current pathological fracture 01/08/2025 Assessment & Plan (01/08/2025 3:42 PM CDT): Never been on treatment, last DXA 07/2024 with osteoporosis by FRAX criteria. - Start Reclast, will send orders to infusion center - Continue vitamin D/calcium supplementation and weight bearing exercises - Recommend daily calcium intake of 1200 mg, preferably from diet or from supplements. Every 1 cup of milk and 1 ounce of cheese contains ~200 mg calcium; every 1 cup of yogurt and most nut milks contain ~ 300 mg calcium. Most multivitamins contain ~500 mg calcium and supplements contain anywhere from 200 mg to 500 mg calcium. Pay attention to labels for elemental calcium -- try to avoid excess of 500 mg elemental calcium at one time to avoid risk of kidney stones. Orders: Vitamin D 25 hydroxy; Future Encounter for Medicare annual wellness exam 04/2024 Assessment & Plan (01/08/2025 3:24 PM CDT): General - HbA1c: Ordered BG level - Lipid panel: Ordered - ASCVD score: On simvastatin 10 mg daily - DEXA scan: UTD 07/2022, repeat ordered Cancer - Cologuard: UTD 09/2024, repeat 09/2027 - Mammogram: UTD 08/2024, repeat 08/2025 - Pap: No longer indicated Infectious Disease - HCV: Ordered Immunizations - Influenza: UTD 06/2024, repeat annually - Td/Tdap: Repeat Q10 years - PCV20: Records requested - Shingles: Records requested - COVID: Recommend Orders: Vitamin D 25 hydroxy; Future Thyroid Function Dyer; Future Lipid panel; Future Comprehensive metabolic panel; Future CBC with auto differential; Future Hepatitis C antibody Blood; Future Hemoglobin A1c; Future Generalized anxiety disorder 07/04/2024 Assessment & Plan (01/08/2025 3:42 PM CDT): Stable on Prozac 20 mg daily. - Continue current regimen Assessment & Plan (07/04/2024 3:42 PM CDT): Stable on fluoxetine 20 mg daily. - Continue current regimen HSV infection 07/04/2024 Assessment & Plan (01/08/2025 3:42 PM CDT): Stable on Valtrex 500 mg daily for chronic suppression. - Continue current regimen Assessment & Plan (07/04/2024 3:43 PM CDT): New partner who has never had an outbreak. Interested in suppressive treatment with Valtrex. - Start Valtrex 500 mg daily Hyperlipidemia 07/04/2024 Assessment & Plan (01/08/2025 3:42 PM CDT): Stable on simvastatin 10 mg daily. - Continue current regimen Orders: Lipid panel; Future Assessment & Plan (07/04/2024 3:42 PM CDT): Stable on simvastatin 10 mg daily. - Continue current regimen Acquired hypothyroidism 07/04/2024 Assessment & Plan (01/08/2025 3:42 PM CDT): Stable on LT4 75 mcg daily. - Continue current regimen Orders: Thyroid Function Dyer; Future Assessment & Plan (07/04/2024 3:42 PM CDT): Stable on LT4 75 mcg daily. - Continue current regimen History of anal cancer 03/28/2018 Cancer Staging:Clinical:Stage IV(cT3, cN1, cM0) - Signed by Cindy Tafoya MD on 06/06/2018 Assessment & Plan (01/08/2025 3:42 PM CDT): History of anal SCC, s/p chemoradiation. No longer following with oncology team. Orders: Comprehensive metabolic panel; Future CBC with auto differential; Future Assessment & Plan (07/04/2024 3:41 PM CDT): History of anal SCC, s/p chemoradiation. No longer following with oncology team. Resolved Problems Problem Noted Date Diagnosed Date Resolved Date Encounter to establish care with new doctor 07/04/2024 01/08/2025 Assessment & Plan (07/04/2024 3:06 PM CDT): General - HbA1c: Records requested - Lipid panel: Records requested - ASCVD score: On simvastatin 10 mg daily - DEXA scan: Records requested Cancer - Colonoscopy: UTD 10/2014, repeat 10/2024 - Mammogram: Ordered - Pap: No longer indicated Infectious Disease - HCV: Order w/ next labs Immunizations - Influenza: Recommend annually - Td/Tdap: Records requested - PCV20: Records requested - Shingles: Records requested - COVID: Recommend Colon cancer screening 07/04/202407/04 Colon cancer screening 07/04/202401/08 Actinic keratosis 10/23/2013 07/04/2024 Immunizations Immunization Administration Dates Next Due COVID-19 mRNA (Utel) 0.3 m L (30 mcg) vaccine (12 years and up) 07/04/2024 Influenza, Quad, Adjuvantated, Intramuscular 05/2023 Influenza, Quadrivalent, Hig h Dose, Preservative Free, Intrr 08/14/2022 Influenza, Quadrivalent, Spl it, Preservative Free, Intramuscular 08/11/2021,07/09/2020 Influenza, Trivalent, High D ose, Split, Preservative Free, Intramuscular 07/04/2024 Steve (J&J) SARS-CoV-2 Vaccination 12/03/2020 Pneumococcal Conjugate Pcv20 01/08/2025 Tdap 11/02/2024 Social History Tobacco Use Types Packs/Day Years Used Date Smoking Tobacco: Former Cigarettes Q uit: 1999 Smokeless Tobacco: Never Tobacco Cessation:Counseling Given: Not Answered Alcohol Use Standard Drinks/Week Comments Yes 1 (1 standard drink = 0.6 oz pur e alcohol) social PHQ-2 Answer Date Recorded PHQ-2 Total Score (If total score is 3 or more points, staff should administer the PHQ-9) 0 01/08/2025 Comments No Sex and Gender Information Value Date Recorded Sex Assigned at Not on file Legal Sex Female 9:57 AM VEHICLE MECHANIC Gender Identity Female 11/13/2020 1:56 PM VEHICLE MECHANIC Sexual Orientation Straight 11/13/2020 1: 56 PM VEHICLE MECHANIC Last Filed Vital Signs Vital Sign Reading Time Taken Comments Blood Pressure 140/82 01/08/2025 2:46 PM CDT Pulse 68 01/08/2025 2:46 PM CDT Temperature 36.9 C (98.5 F) 05/03/2024 12:16 PM CDT Respiratory Rate 18 05/03/2024 12:16 PM CDT Oxygen Saturation 96% 01/08/2025 2:46 PM CDT Inhaled Oxygen Concentration - - Weight 68 kg (150 lb) 01/08/2025 2:46 PM CDT Height 170.2 cm (5' 7 ) 01/08/2025 2:46 PM CDT Body Mass Index 23.49 01/08/2025 2:46 PM CDT Plan of Treatment Scheduled Procedures Name Priority Associated Diagnoses Date/Ti me COLONOSCOPY Open Access Colon cancer screening Procedures Procedure Name Priority Date/Time Associated Diagnosis Comments EGFR Routine 01/08/2025 3:39 PM CDT Encounter for Medicare annual wellness exam History of anal cancer DIFFERENTIAL AUTO Routine 01/08/2025 3:39 PM CDT Encounter for Medicare annual wellness exam History of anal cancer VITAMIN D 25 HYDROXY Routine 01/08/2025 3:39 PM CDT Encounter for Medicare annual wellness exam Age-related osteoporosis without current pathological fracture THYROID FUNCTION CASCADE Routine 01/08/2025 3:39 PM CDT Encounter for Medicare annual wellness exam Acquired hypothyroidism LIPID PANEL Routine 01/08/2025 3:39 PM CDT Encounter for Medicare annual wellness exam Pure hypercholesterolemia COMPREHENSIVE METABOLIC PANEL Routine 01/08/2025 3:39 PM CDT Encounter for Medicare annual wellness exam History of anal cancer CBC WITH AUTO DIFFERENTIAL Routine 01/08/2025 3:39 PM CDT Encounter for Medicare annual wellness exam History of anal cancer HEMOGLOBIN A1C Routine 01/08/2025 3:39 PM CDT Encounter for Medicare annual wellness exam HEPATITIS C ANTIBODY Routine 01/08/2025 3:39 PM CDT Encounter for Medicare annual wellness exam Encounter for HCV screening test for low risk patient STOOL DNA COLOGUARD Routine 10/13/2024 12:15 PM VEHICLE MECHANIC Colon cancer screening DEXA AXIAL SKELETON BONE DENSITY 1 OR MORE SITES Schedule Routine, Read Routine (OP Routine) 08/16/2024 11:07 AM VEHICLE MECHANIC Asymptomatic menopausal state SCREENING MAMMOGRAM BILATERAL W SILVIO Schedule Routine, Read Routine (OP Routine) 08/16/2024 10:58 AM VEHICLE MECHANIC Encounter for screening mammogram for malignant neoplasm of breast from Last 3 Months or Most Recently Relevant to Health Maintenance Results * eGFR (01/08/2025 3:39 PM CDT) eGFR 78 >=60 mL/min/1. 73 m2 Comment: Interpretive Data Reference Interval Normal >/= 90 mL/min/1.73m2 Mildly decreased* 60 - 89 mL/min/1.73m2 Mildly to moderately decreased 45 - 59 mL/min/1.73m2 Moderately to severely decreased 30 - 44 mL/min/1.73m2 Severely decreased 15 - 29 mL/min/1.73m2 Kidney Failure < 15 mL/min/1.73m2 *Relative to young adult level Estimated glomerular filtration rate is determined by the 2020 CKD-EPI equation recommended by the National Kidney Foundation (A Unifying Approach to GFR Estimation: Recommendations of the NKF-ASK Task Force on Reassessing the Inclusion of Race in Diagnosing Kidney Disease, JASN 2020). The CKD-EPI equation should not be used for patients with unstable renal function and has not been validated in children and those over 70. Current interpretive data was last reviewed 2021. Blood 01/08/2025 3:39 PM CDT 01/08/2025 7:00 PM CDT us Whit Velasquez MD LAB BLOOD ORDERABLES F inal Result [facility] [address] Department [place] [address] * Differential, auto (01/08/2025 3:39 PM CDT) Neutrophil abs 3.78 1.50 - 6.50 K/cumm Imm gran abs 0.02 0.00 - 0.10 K/cumm [facility] Lymphocyte abs 1.99 0.80 - 3.30 K/cumm [facility] Monocyte abs 0.72 0.20 - 0.80 K/cumm [facility] Eosinophil abs 0.13 0.00 - 0.50 K/cumm [facility] Basophil abs 0.05 0.00 - 0.10 K/cumm [facility] Neutrophil pct 56.6 % [facility] Comment: Interpretive Data Percent cell count reference ranges are not reported, since discordance with absolute values may lead to misinterpretation of CBC data. Current Interpretive Data was last revised on 2018. Imm gran pct 0.3 % [facility] Comment: Interpretive Data Percent cell count reference ranges are not reported, since discordance with absolute values may lead to misinterpretation of CBC data. Current Interpretive Data was last revised on 2018. Lymphocyte pct 29.7 % [facility] Comment: Interpretive Data Percent cell count reference ranges are not reported, since discordance with absolute values may lead to misinterpretation of CBC data. Current Interpretive Data was last revised on 2018. Monocyte pct 10.8 % [facility] Comment: Interpretive Data Percent cell count reference ranges are not reported, since discordance with absolute values may lead to misinterpretation of CBC data. Current Interpretive Data was last revised on 2018. Eosinophil pct 1.9 % [facility] Comment: Interpretive Data Percent cell count reference ranges are not reported, since discordance with absolute values may lead to misinterpretation of CBC data. Current Interpretive Data was last revised on 2018. Basophil pct 0.7 % [facility] Comment: Interpretive Data Percent cell count reference ranges are not reported, since discordance with absolute values may lead to misinterpretation of CBC data. Current Interpretive Data was last revised on 2018. Blood 01/08/2025 3:39 PM CDT 01/08/2025 7:00 PM CDT Whit Velasquez MD LAB BLOOD ORDERABLES F inal Result Performing Organization Address City/[facility]/ZIP Co de Phone Number [facility] [address] Department of [employer] [place], [place] [id number] * Thyroid Function Dyer (01/08/2025 3:39 PM CDT) Pathologist [facility] TSH 1.66 0.30 - 4.20 mcIUnit/mL Blood 01/08/2025 3:39 PM CDT 01/08/2025 7:00 PM CDT Whit Velasquez MD LAB BLOOD ORDERABLES F inal Result Performing Organization Address City/[facility]/ZIP Co de Phone Number [facility] [address] [place] [address] * (ABNORMAL) CBC with auto differential (01/08/2025 3:39 PM CDT) WBC 6.69 3.80 - 9.90 K/cumm Hgb 12.0 11.9 - 15.5 g/dL [facility] Hct 37.4 35.6 - 45.5 % [facility] Plt 298 150 - 400 K/cumm [facility] MPV 11.6 9.1 - 12.3 fL [facility] RBC 3.77(L) 3.90 - 5.20 M/cumm [facility] MCV 99.2(H) 81.3 - 96.4 fL [facility] MCH 31.8 27.1 - 33.3 pg [facility] MCHC 32.1(L) 32.3 - 35.7 g/dL [facility] RDW CV 12.4 11.1 - 14.9 % [facility] RDW SD 44.8 35.7 - 48.1 fL [facility] NRBC abs 0.00 0.00 - 0.01 K/cumm [facility] Blood 01/08/2025 3:39 PM CDT 01/08/2025 7:00 PM CDT us Whit Velasquez MD LAB BLOOD ORDERABLES F inal Result [facility] [address] [place] [address] * Hepatitis C antibody Blood (01/08/2025 3:39 PM CDT) Pathologist [facility] Hep C Ab Nonreactive Nonreactive Comment: Interpretive Data Nonreactive: Antibodies to HCV not detected. Does NOT exclude the possibility of recent exposure to HCV. Equivocal: Equivocal for HCV antibodies. Supplemental molecular testing will be automatically performed to determine infection status in accordance with current CDC screening recommendations. Reactive: Positive for HCV antibodies. This may represent current or past HCV infection. Supplemental molecular testing will be automatically performed to determine current infection status in accordance with current CDC screening recommendations. Interpretive data was last revised on 2019. Blood 01/08/2025 3:39 PM CDT 01/08/2025 7:00 PM CDT Whit Velasquez MD LAB MICROBIOLOGY - GEN ERAL ORDERABLES Final Result [facility] [address] [place] [address] * Vitamin D 25 hydroxy (01/08/2025 3:39 PM CDT) [facility] Vitamin D 25-OH 59 30 - 80 ng/mL Blood 01/08/2025 3:39 PM CDT 01/08/2025 7:00 PM CDT Whit Velasquez MD LAB BLOOD ORDERABLES F inal Result Performing Organization Address [facility] de Phone Number [facility] [address] [employer] [place], [place] [id number] * Hemoglobin A1c (01/08/2025 3:39 PM CDT) [facility] Hgb A1C 5.4 4.0 - 5.6 % Estimated Average Glucose 108 mg/dL [facility] Comment: The ADA recommends reporting an estimated Average Glucose (eAG) with all Hemoglobin A1c results using the equation derived from a study of 507 normal and diabetic adults. Minority populations were underrepresented and children were not included. (Diabetes Care 31:6267-3882, 2008). The eAG is not equivalent to a fasting glucose. Blood 01/08/2025 3:39 PM CDT 01/08/2025 7:00 PM CDT Whit Velasquez MD LAB BLOOD ORDERABLES F inal Result Performing Organization Address [facility]/ZIP Co de Phone Number [facility] [address] Department [employer] [place], [place] [id number] * Lipid panel (01/08/2025 3:39 PM CDT) [facility] Cholesterol 178 30 - 199 mg/dL Comment: Interpretive Data Ages < or = 19 years Acceptable: <170 mg/dL Borderline high: 170-199 mg/dL High: >or= 200 mg/dL Ages > or = 20 years Desirable: <200 mg/dL Borderline high: 200-239 mg/dL High: >or= 240 mg/dL Literature References: 1. Expert Panel on Integrated Guidelines for Cardiovascular Health and Risk Reduction in Children and Adolescents. Pediatrics 2011;128:S213 2. NCEP Expert Panel. Circulation 2004;110:227 Current Interpretive Data was last revised on 2018. Triglycerides 92 <=149 mg/dL [facility] Comment: Interpretive Data Ages < or = 9 years Acceptable: <75 mg/dL Borderline high: 75-99 mg/dL High: >or= 100 mg/dL Ages 10 to 20 years Acceptable: <90 mg/dL Borderline high: 90-129 mg/dL High: >or= 130 mg/dL Ages > or = 20 years Desirable: <150 mg/dL Borderline high: 150-199 mg/dL High: 200-499 mg/dL Very high: >or= 499 mg/dL Literature References: 1. Expert Panel on Integrated Guidelines for Cardiovascular Health and Risk Reduction in Children and Adolescents. Pediatrics 2011;128:S213 2. NCEP Expert Panel. Circulation 2004;110:227 Current Interpretive Data was last revised on 2018. HDL 63 >=40 mg/dL [facility] Comment: Interpretive Data Ages < or = 19 years Acceptable: >45 mg/dL Borderline low: 40-45 mg/dL Low: <40 mg/dL Ages > or = 20 years Desirable: >or= 60 mg/dL Low: <40 mg/dL Literature References: 1. Expert Panel on Integrated Guidelines for Cardiovascular Health and Risk Reduction in Children and Adolescents. Pediatrics 2011;128:S213 2. NCEP Expert Panel. Circulation 2004;110:227 Current Interpretive Data was last revised on 2018. LDL, calculated 98 <=129 mg/dL [facility] Comment: Interpretive Data Ages < or = 19 years Acceptable: <110 mg/dL Borderline high: 110-129 mg/dL High: >or= 130 mg/dL Ages > or = 20 years Optimal: <100 mg/dL Near optimal: 100-129 mg/dL Borderline high: 130-159 mg/dL High: >160 mg/dL Calculated using the [place] LDL-C estimating equation. This equation was implemented on 2024. Prior to this date LDL-C was estimated using the Friedewald equation. Literature References: 1. Expert Panel on Integrated Guidelines for Cardiovascular Health and Risk Reduction in Children and Adolescents. Pediatrics 2011;128:S213 2. NCEP Expert Panel. Circulation 2004;110:227 3. Denilson Jackson et al. SHALA Cardiol. 2019January 25;5(5):540-548. doi: 10.1001/jamacardio.2020.0013 Current Interpretive Data was last revised on 2024. Non-HDL Cholesterol 115 mg/dL [facility] Comment: Interpretive Data Ages < or = 19 years Acceptable: <120 mg/dL Borderline high: 120-144 mg/dL High: >145 mg/dL Ages > or = 20 years When triglycerides are >200 mg/dL, Non-HDL cholesterol is a secondary target of therapy with treatment goals that are 30 mg/dL greater than the LDL cholesterol target. Literature References: 1. Expert Panel on Integrated Guidelines for Cardiovascular Health and Risk Reduction in Children and Adolescents. Pediatrics 2011;128:S213 2. NCEP Expert Panel. Circulation 2004;110:227 Current Interpretive Data was last revised on 2018. Chol/HDL ratio 3 [facility] Blood 01/08/2025 3:39 PM CDT 01/08/2025 7:00 PM CDT us Whit Velasquez MD LAB BLOOD ORDERABLES F inal Result [facility] [address] Department [place] [address] * Comprehensive metabolic panel (01/08/2025 3:39 PM CDT) Sodium 142 135 - 145 mmol/L Potassium, pl 4.0 3.3 - 4.9 mmol/L [facility] Chloride 102 97 - 110 mmol/L [facility] CO2 26 22 - 32 mmol/L [facility] Anion gap 14 2 - 15 mmol/L [facility] BUN 15 6 - 25 mg/dL [facility] Creatinine 0.82 0.60 - 1.10 mg/dL [facility] Glucose 84 70 - 199 mg/dL [facility] Comment: Interpretive Data Fasting glucose >/= 126 mg/dl is diagnostic for diabetes. Fasting is defined as no caloric intake for at least 8 hours. Fasting glucose between 100 mg/dl to 125 mg/dl is diagnostic of prediabetes. In a patient with classic symptoms of hyperglycemia or hyperglycemic crisis, a random glucose >/= 200 mg/dl is diagnostic for diabetes. In the absence of unequivocal hyperglycemia, results should be confirmed by repeat testing. The classification and Diagnosis of Diabetes Diabetes Care 202; 46: S19-S40. Current interpretive data was last revised 2022. Calcium 9.6 8.5 - 10.3 mg/dL [facility] Bilirubin, total 0.6 0.1 - 1.2 mg/dL [facility] Protein, pl 7.3 6.5 - 8.5 g/dL [facility] Albumin 4.2 3.5 - 5.0 g/dL [facility] Alk phos 65 40 - 130 Units/L [facility] ALT 25 7 - 45 Units/L [facility] AST 31 10 - 45 Units/L [facility] Blood 01/08/2025 3:39 PM CDT 01/08/2025 7:00 PM CDT us Whit Velasquez MD LAB BLOOD ORDERABLES F inal Result [facility] [address] [place] [address] * Stool DNA - Cologuard (10/13/2024 12:15 PM VEHICLE MECHANIC) Stool DNA - Cologuard Negative Negative [employer] (CLIA #:[id number]) Comment: NEGATIVE TEST RESULT. A negative Cologuard result indicates a low likelihood that a colorectal cancer (CRC) or advanced adenoma (adenomatous polyps with more advanced pre-malignant features) is present. The chance that a person with a negative Cologuard test has a colorectal cancer is less than 1 in 1500 (negative predictive value >99.9%) or has an advanced adenoma is less than 5.3% (negative predictive value 94.7%). These data are based on a prospective cross-sectional study of 10,000 individuals at average risk for colorectal cancer who were screened with both Cologuard and colonoscopy. (Patricia Cameron al, N Engl J Med 2014;370(48):6992-9221) The normal value (reference range) for this assay is negative. COLOGUARD RE-SCREENING RECOMMENDATION: Periodic colorectal cancer screening is an important part of preventive healthcare for asymptomatic individuals at average risk for colorectal cancer. Following a negative Cologuard result, the [place] Cancer Society and U.S. Multi-Society Task Force screening guidelines recommend a Cologuard re-screening interval of 3 years. References: [place] [employer] Guideline for Colorectal Cancer Screening: https://www.cancer.org/cancer/xrxqb-oyvsbx-jsycqp/czpbaixwk-ulpzqqjdr-teckzvt/ac s-rec ommendations.html.; Armando DK, Jae STACK, Rasta MorrisK, Colorectal Cancer Screening: Recommendations for Physicians and Patients from the U.S. Multi-Society Task Force on Colorectal Cancer Screening , Am J Gastroenterology 2017; 112:9795-3525. TEST DESCRIPTION: Composite algorithmic analysis of stool DNA-biomarkers with hemoglobin immunoassay. Quantitative values of individual biomarkers are not reportable and are not associated with individual biomarker result reference ranges. Cologuard is intended for colorectal cancer screening of adults of either sex, 45 years or older, who are at average-risk for colorectal cancer (CRC). Cologuard has been approved for use by the U.S. FDA. The performance of Cologuard was established in a cross sectional study of average-risk adults aged 50-84. Cologuard performance in patients ages 45 to 49 years was estimated by sub-group analysis of near-age groups. Colonoscopies performed for a positive result may find as the most clinically significant lesion: colorectal cancer [4.0%], advanced adenoma (including sessile serrated polyps greater than or equal to 1cm diameter) [20%] or non- advanced adenoma [31%]; or no colorectal neoplasia [45%]. These estimates are derived from a prospective cross-sectional screening study of 10,000 individuals at average risk for colorectal cancer who were screened with both Cologuard and colonoscopy. (Patricia Wright, N Engl J Med 2014;370(14):4862-0374.) Cologuard may produce a false negative or false positive result (no colorectal cancer or precancerous polyp present at colonoscopy follow up). A negative Cologuard test result does not guarantee the absence of CRC or advanced adenoma (pre-cancer). The current Cologuard screening interval is every 3 years. ([place] Cancer Society and U.S. Multi-Society Task Force). Cologuard performance data in a 10,000 patient pivotal study using colonoscopy as the reference method can be accessed at the following location: www.[email or web address].Flyfit/results. Additional description of the Cologuard test process, warnings and precautions can be found at www.cologuard.com. Stool 10/13/2024 12:1 5 PM VEHICLE MECHANIC 10/15/2024 8:29 PM VEHICLE MECHANIC us Whit Velasquez MD LAB BODY FLUIDS AND ST OOLS ORDERABLES Final Result [facility] (CLIA #:[id number]) [address] [place] [address] * Dexa Axial Skeleton Bone Density 1 or 2 Site (08/16/2024 11:07 AM VEHICLE MECHANIC) Anatomical Region Laterality Modality Body N/A Digital Radiogra phy 08/16/2024 11:1 0 AM VEHICLE MECHANIC Impressions 08/16/2024 11:13 AM VEHICLE MECHANIC Low bone mass (osteopenia) which depending on the clinical circumstances may result in a moderate increased risk of fragility fracture. If followup is to be done, for technical reasons, it should be performed on this same machine. Dictated by: Tracy Lew PA-C The radiology attending physician has personally reviewed this study, and had reviewed and/or edited this written report and agrees with it. Electronically signed by: Jatin Benavides M.D. Narrative 08/16/2024 11:13 AM VEHICLE MECHANIC EXAM: Bone mineral density examination HISTORY: Postmenopausal. DXA BMD was done at [facility] on a Hologic Horizon W. Precision testing at this site has resulted in a least significant change of: Lumbar spine:0.028 g/sq cm2 Total Hip: 0.031 g/sq cm2 Femoral neck: 0.034 g/sq cm2 BMD L1-L4 is 0.896 g/sq cm corresponding to a T score of -1.4. BMD left femoral neck is 0.581 g/sq cm corresponding to a T score of -2.4. BMD total left hip is 0.773 g/sq cm corresponding to a T score of -1.4. The 10-year fracture risk for major osteoporotic fracture: 21% The 10-year fracture risk for hip fracture: 4.3% FRAX scoring has been performed on all patients regardless of age and risk factors. All treatment decisions require clinical judgment and consideration of individual patient factors. COMPARISON: None. Procedure Note Jatin Benavides MD - 08/16/2024 EXAM: Bone mineral density examination HISTORY: Postmenopausal. DXA BMD was done at [facility] on a Hologic Horizon W. Precision testing at this site has resulted in a least significant change of: Lumbar spine:0.028 g/sq cm2 Total Hip: 0.031 g/sq cm2 Femoral neck: 0.034 g/sq cm2 BMD L1-L4 is 0.896 g/sq cm corresponding to a T score of -1.4. BMD left femoral neck is 0.581 g/sq cm corresponding to a T score of -2.4. BMD total left hip is 0.773 g/sq cm corresponding to a T score of -1.4. The 10-year fracture risk for major osteoporotic fracture: 21% The 10-year fracture risk for hip fracture: 4.3% FRAX scoring has been performed on all patients regardless of age and risk factors. All treatment decisions require clinical judgment and consideration of individual patient factors. COMPARISON: None. IMPRESSION: Low bone mass (osteopenia) which depending on the clinical circumstances may result in a moderate increased risk of fragility fracture. If followup is to be done, for technical reasons, it should be performed on this same machine. Dictated by: Tracy Lew PA-C The radiology attending physician has personally reviewed this study, and had reviewed and/or edited this written report and agrees with it. Electronically signed by: Jatin Benavides M.D. Whit Velasquez MD IMG DXA PROCEDURES Fin al Result * (ABNORMAL) Screening Mammogram Bilateral W Silvio (08/16/2024 10:58 AM VEHICLE MECHANIC) Anatomical Region Laterality Modality Breast Bilateral Mammography Narrative 08/30/2024 11:14 AM VEHICLE MECHANIC Examination: Screening Mammogram Bilateral W Silvio: 08/16/24 Clinical: Encounter for screening mammogram for malignant neoplasm of breast. Prior Study Comparisons: Prior studies have been requested but are not available for review at this time. An addendum will be issued if comparisons are obtained. Findings: Screening Mammogram Bilateral W Silvio Left 1) Focal Asymmetry: There is a focal asymmetry seen in the retroareolar region of the left breast. This finding needs additional imaging evaluation. Right No significant masses, malignant type calcifications, skin thickening, nipple retraction, or significant lymphadenopathy is noted in this breast. Computer Aided Detection was utilized for the interpretation of this study. There are scattered areas of fibroglandular density. The patient will be notified of results by letter. Impression: BI-RADS ATLAS category (left): 0 - Incomplete: Needs Additional Imaging Evaluation Overall Assessment: 0 - Incomplete: Needs Additional Imaging Evaluation Recommendation: - Additional Mammography views with possible ultrasound for the left breast. Whit Velasquez MD IMG MAMMO PROCEDURES F inal Result from Last 3 Months or Most Recently Relevant to Health Maintenance Insurance MEDICARE [employer] [place] [facility]ICARE [employer] [place] [facility] Care Teams Liberal Arts Teacher Relationship Specialty Start Date End Date Whit Velasquez MD [address] [address] PCP - General Internal Medicine 07/04/24 Bogdan Broderick MD Surgeon Colon and Rectal Surgery 06/06/18
--- OUTSIDE RECORDS SUMMARY | 2025-01-19 11:54 | XMS_ITS | Clinical Summary ---
Author Organization [facility] al Address [address] [place] [address] Care Team Providers Care Parts Room Clerk Name Role Phone Bogdan Broderick MD Unavailable [phone] Whit Velasquez MD Primary Care Provider Allergies No known active allergies Medications levothyroxine (SYNTHROID, LEVOTHROID) 75 mcg tabletIndicatio ns:hypothyroidi sm Take 1 tablet (75 mcg total) by mouth product development actuary before breakfast 3 8 Active simvastatin (ZOCOR) [...] Vitamin D 25 hydroxy; Future Thyroid Function [place]; Future Lipid panel; Future Comprehensive metabolic panel; [...] - Continue current regimen Orders: Thyroid Function [place]; Future Assessment & Plan (07/04/2024 3:42 PM [...] cancer screening 07/04/202401/08 Actinic keratosis 10/23/2013 07/04/2024 Encounters Date Type Department Care Team Description 01/09/2025 Results Follow-Up [facility] Primary Care at [address] [address] Whit Velasquez MD 01/08/2025 3:41 PM CDT - 01/08/2025 11:59 PM CDT Hospital Encounter [address] [address] Discharge Disposition: Discharge to home or self care 01/08/2025 3:40 PM CDT Lab [facility] Primary Care at [address] [place] [phone] 01/08/2025 3:00 PM CDT Office Visit [facility] Medical [facility] Primary Care at [address] [phone] Whit Velasquez MD Encounter for Medicare annual wellness exam (Primary Dx); Encounter for HCV screening test for low risk patient; Pure hypercholesterolemia; Acquired hypothyroidism; History of anal cancer; HSV infection; Generalized anxiety disorder; Age-related osteoporosis without current pathological fracture; Need for Streptococcus pneumoniae vaccination; Foreign body (FB) in soft tissue from Last 3 Months Immunizations Immunization Administration Dates Next Due COVID-19 mRNA (Vtap) 0.3 m L (30 mcg) vaccine (12 years and up) 07/04/2024 Influenza, Quad, Adjuvantated, Intramuscular 05/2023 Influenza, Quadrivalent, Hig h Dose, Preservative Free, Intrr 08/14/2022 Influenza, Quadrivalent, Spl it, Preservative Free, Intramuscular 08/11/2021,07/09/2020 Influenza, Trivalent, High D ose, Split, Preservative Free, Intramuscular 07/04/2024 SoftLayer (J&J) SARS-CoV-2 Vaccination 12/03/2020 Pneumococcal Conjugate Pcv20 01/08/2025 Tdap 11/02/2024 Surgical History Surgery Date Site/Laterality Comments RECTAL EXAMINATION UNDER ANESTHESIA 12/11/2016 EUA w/ biopsy of 4 cm posterior anal canal mass EXAMINATION UNDER ANESTHESIA 05/10/2019 EXAM UNDER ANESTHESIA - RECTUM, ANAL BIOPSY COLONOSCOPY LIPOSUCTION Medical History Medical History Date Comments Hypothyroidism Headache Bleeding Sleep apnea Cancer (HCC) 2017 Family History Medical History Relation Name Comments Heart disease Father father Hypertension Father father Snoring Father father Breast cancer Maternal Grandmother Family history of malignant neoplasm of breast - (Added by TW Conv) Breast cancer Mother mother Family history of malignant neoplasm of breast - (Added by TW Conv) Macular degeneration Mother mother Thyroid disease Mother mother Breast cancer Mother's Sister Breast cancer Other Family history of malignant neoplasm of breast - Relation: Aunt (Added by TW Conv) Cancer Paternal Grandmother mother Breast cancer Sister Melanoma Sister Melanoma - (Add ed by TW Conv) Relation Name Status Comments Father father Maternal Grandmother Mother mother Mother's Sister Other Paternal Grandmother mother Sister Social History Tobacco Use Types Packs/Day Years Used Date Smoking Tobacco: Former Cigarettes Q uit: 2000 Smokeless Tobacco: Never Tobacco Cessation:Counseling Given: Not [...] on file Legal Sex Female 9:57 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 Gender Identity Female 11/13/2020 1:56 PM FARM MACHINERY ASSEMBLER Sexual Orientation Straight 11/13/2020 1: 56 PM FARM MACHINERY ASSEMBLER Obstetrics History Last Filed Vital Signs Vital Sign Reading [...] me COLONOSCOPY Open Access Colon cancer screening Health Maintenance Due Date Last Done Comments Zoster Vaccine (1 of 2) 2006 Covid-19 Vaccine ( season) 2025 07/04/2024, 07/05/2023, 08/14/2022, Additional history exists Postponed from 01/02/2025 (Provider's clinical decision) Breast Cancer Screening-Mammogram 08/16/2025 08/16/2024 Depression Screening 01/08/2026 01/08/2025 Fall Risk Assessment 01/08/2026 01/08/2025 Well Visit 65+ 01/08/2026 01/08/2025 Osteoporosis Screening-Bone Density Scan 08/16/2026 08/16/2024 Colon Cancer Screening-DNA Stool 10/13/2027 10/13/2024 DTaP/Tdap/Td Vaccine (2 - Td or Tdap) 11/02/2034 11/02/2024 Influenza Vaccine Completed 07/04/2024, , 08/14/2022, Additional history exists Colon Cancer Screening-FIT Discontinued 10/13/2024 Hepatitis C Screening Completed 01/08/2025 Pneumococcal vaccine 65+ Completed 01/08/2025 Hepatitis B Screening Discontinued Procedures Procedure Name Priority Date/Time Associated Diagnosis [...] STOOL DNA COLOGUARD Routine 10/13/2024 12:15 PM FARM MACHINERY ASSEMBLER Colon cancer screening DEXA AXIAL SKELETON BONE DENSITY 1 OR MORE SITES Schedule Routine, Read Routine (OP Routine) 08/16/2024 11:07 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 Asymptomatic menopausal state SCREENING MAMMOGRAM BILATERAL W SILVIO Schedule Routine, Read Routine (OP Routine) 08/16/2024 10:58 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 Encounter for screening mammogram for malignant neoplasm [...] LAB BLOOD ORDERABLES F inal Result [facility] [address] Department [place] [address] * Differential, auto (01/08/2025 3:39 PM CDT) Neutrophil abs 3.78 1.50 - 6.50 K/cumm Imm gran abs 0.02 0.00 - 0.10 K/cumm [facility] Lymphocyte abs 1.99 0.80 - 3.30 K/cumm [facility] Monocyte abs 0.72 0.20 - 0.80 K/cumm [facility] Eosinophil abs 0.13 0.00 - 0.50 K/cumm [facility] Basophil abs 0.05 0.00 - 0.10 K/cumm [facility] Neutrophil pct 56.6 % [facility] Comment: Interpretive Data Percent cell count reference ranges are not reported, since discordance with absolute values may lead to misinterpretation of CBC data. Current Interpretive Data was last revised on 2018. Imm gran pct 0.3 % [facility] Comment: Interpretive Data Percent cell count reference ranges are not reported, since discordance with absolute values may lead to misinterpretation of CBC data. Current Interpretive Data was last revised on 2018. Lymphocyte pct 29.7 % [facility] Comment: Interpretive Data Percent cell count reference ranges are not reported, since discordance with absolute values may lead to misinterpretation of CBC data. Current Interpretive Data was last revised on 2018. Monocyte pct 10.8 % [facility] Comment: Interpretive Data Percent cell count reference ranges are not reported, since discordance with absolute values may lead to misinterpretation of CBC data. Current Interpretive Data was last revised on 2018. Eosinophil pct 1.9 % [facility] Comment: Interpretive Data Percent cell count reference ranges are not reported, since discordance with absolute values may lead to misinterpretation of CBC data. Current Interpretive Data was last revised on 2018. Basophil pct 0.7 % [facility] Comment: Interpretive Data Percent cell count reference ranges are not reported, since discordance with absolute values may lead to misinterpretation of CBC data. Current Interpretive Data was last revised on 2018. Blood 01/08/2025 3:39 PM CDT 01/08/2025 7:00 PM CDT Whit Velasquez MD LAB BLOOD ORDERABLES F inal Result Performing Organization Address City/[facility]/ZIP Co de Phone Number [facility] [address] Department [place] [address] * Thyroid Function [place] (01/08/2025 3:39 PM CDT) Pathologist [facility] TSH 1.66 0.30 - 4.20 mcIUnit/mL Blood 01/08/2025 3:39 PM CDT 01/08/2025 7:00 PM CDT Whit Velasquez MD LAB BLOOD ORDERABLES F inal Result [facility] [address] Department [place] [address] * (ABNORMAL) CBC with auto differential (01/08/2025 3:39 PM CDT) Pathologist [facility] WBC 6.69 3.80 - 9.90 K/cumm Hgb 12.0 11.9 - 15.5 g/dL [facility] Hct 37.4 35.6 - 45.5 % [facility] Plt 298 150 - 400 K/cumm [facility] MPV 11.6 9.1 - 12.3 fL [facility] RBC 3.77(L) 3.90 - 5.20 M/cumm [facility] MCV 99.2(H) 81.3 - 96.4 fL [facility] MCH 31.8 27.1 - 33.3 pg [facility] MCHC 32.1(L) 32.3 - 35.7 g/dL [facility] RDW CV 12.4 11.1 - 14.9 % [facility] RDW SD 44.8 35.7 - 48.1 fL [facility] NRBC abs 0.00 0.00 - 0.01 K/cumm [facility] Blood 01/08/2025 3:39 PM CDT 01/08/2025 7:00 PM CDT Whit Velasquez MD LAB BLOOD ORDERABLES F inal Result Performing Organization Address [facility] de Phone Number [facility] [address] Department [place] [address] * Hepatitis C antibody Blood (01/08/2025 3:39 PM CDT) Pathologist [facility] Hep C Ab Nonreactive Nonreactive Comment: Interpretive [...] MICROBIOLOGY - GEN ERAL ORDERABLES Final Result Performing Organization Address [facility]/ZIP Co de Phone Number [facility] [address] [place] [address] * Vitamin D 25 hydroxy (01/08/2025 3:39 PM CDT) [facility] Vitamin D 25-OH 59 30 - 80 ng/mL Blood 01/08/2025 3:39 PM CDT 01/08/2025 7:00 PM CDT Whit Velasquez MD LAB BLOOD ORDERABLES F inal Result Performing Organization Address [facility] de Phone Number [facility] [address] [place] [address] * Hemoglobin A1c (01/08/2025 3:39 PM CDT) [facility] Hgb A1C 5.4 4.0 - 5.6 % Estimated Average Glucose 108 mg/dL [facility] Comment: The ADA recommends reporting an estimated Average Glucose (eAG) with all Hemoglobin A1c results using the equation derived from a study of 507 normal and diabetic adults. Minority populations were underrepresented and children were not included. (Diabetes Care 31:3380-6183, 2008). The eAG is not equivalent to a fasting glucose. Blood 01/08/2025 3:39 PM CDT 01/08/2025 7:00 PM CDT Result [facility] Whit Velasquez MD LAB BLOOD ORDERABLES F inal Result Performing Organization Address [facility] Co de Phone Number [facility] [address] Department [place] [address] * Lipid panel (01/08/2025 3:39 PM CDT) [facility] Cholesterol 178 30 - 199 mg/dL [...] in Children and Adolescents. Pediatrics 2011;128:S213 2. UTEP Expert Panel. Circulation 2004;110:227 Current Interpretive Data was last revised on 2018. Triglycerides 92 <=149 mg/dL [facility] Comment: Interpretive Data Ages < or = [...] on 2018. HDL 63 >=40 mg/dL [facility] Comment: Interpretive Data Ages < or = [...] 2018. LDL, calculated 98 <=129 mg/dL [facility] Comment: Interpretive Data Ages < or = [...] NCEP Expert Panel. Circulation 2004;110:227 3. Denilson M et al. SHALA Cardiol. 2020 January 25;5(5):540-548. doi: 10.1001/jamacardio.2020.0013 Current Interpretive Data was last revised on 2024. Non-HDL Cholesterol 115 mg/dL [facility] Comment: Interpretive Data Ages < or = [...] revised on 2018. Chol/HDL ratio 3 [facility] Blood 01/08/2025 3:39 PM CDT 01/08/2025 7:00 PM CDT us Whit Velasquez MD LAB BLOOD ORDERABLES F inal Result [facility] [address] Department [place] [address] * Comprehensive metabolic panel (01/08/2025 3:39 PM CDT) Sodium 142 135 - 145 mmol/L Potassium, pl 4.0 3.3 - 4.9 mmol/L [facility] Chloride 102 97 - 110 mmol/L [facility] CO2 26 22 - 32 mmol/L [facility] Anion gap 14 2 - 15 mmol/L [facility] BUN 15 6 - 25 mg/dL [facility] Creatinine 0.82 0.60 - 1.10 mg/dL [facility] Glucose 84 70 - 199 mg/dL [facility] Comment: Interpretive Data Fasting glucose >/= 126 [...] classification and Diagnosis of Diabetes Diabetes Care 2021; 46: S19-S40. Current interpretive data was last revised 2022. Calcium 9.6 8.5 - 10.3 mg/dL [facility] Bilirubin, total 0.6 0.1 - 1.2 mg/dL [facility] Protein, pl 7.3 6.5 - 8.5 g/dL [facility] Albumin 4.2 3.5 - 5.0 g/dL [facility] Alk phos 65 40 - 130 Units/L [facility] ALT 25 7 - 45 Units/L [facility] AST 31 10 - 45 Units/L [facility] Blood 01/08/2025 3:39 PM CDT 01/08/2025 7:00 PM CDT us Whit Velasquez MD LAB BLOOD ORDERABLES F inal Result [facility] [address] Department [place] [address] * Stool DNA - Cologuard (10/13/2024 12:15 PM FARM MACHINERY ASSEMBLER) Pathologist [facility] Stool DNA - Cologuard Negative Negative [employer] (CLIA #:[id number]) Comment: NEGATIVE TEST RESULT. A negative Cologuard [...] (Patricia Cameron al, N Engl J Med 2014;370(14):2082-9726) The normal value (reference range) for this assay is negative. COLOGUARD RE-SCREENING RECOMMENDATION: Periodic colorectal cancer screening is an important part of preventive healthcare for asymptomatic individuals at average risk for colorectal cancer. Following a negative Cologuard result, the [place] Cancer Society and U.S. Multi-Society Task Force screening guidelines recommend a Cologuard re-screening interval of 3 years. References: [place] Cancer Society Guideline for Colorectal Cancer Screening: https://www.cancer.org/cancer/ovmmp-uwjcmr-veymyv/papbmlxir-tquorgycg-msqmgqi/ac s-rec ommendations.html.; Armando DK, Jae STACK, Rasta MorrisK, Colorectal Cancer Screening: Recommendations for Physicians and Patients from the U.S. Multi-Society Task Force on Colorectal Cancer Screening , Am J Gastroenterology 2017; 112:0505-1953. TEST DESCRIPTION: Composite algorithmic analysis of stool [...] colonoscopy. (Patricia Wright, N Engl J Med 2014;370(14):9214-5370.) Cologuard may produce a false negative or false positive result (no colorectal cancer or precancerous polyp present at colonoscopy follow up). A negative Cologuard test result does not guarantee the absence of CRC or advanced adenoma (pre-cancer). The current Cologuard screening interval is every 3 years. ([place] Cancer Society and U.S. Multi-Society Task Force). Cologuard performance data in a 10,000 patient pivotal study using colonoscopy as the reference method can be accessed at the following location: www.UUCUN/results. Additional description of the Cologuard test process, warnings and precautions can be found at www.Nexaweb Technologiesrd.com. Stool 10/13/2024 12:1 5 PM FARM MACHINERY ASSEMBLER 10/15/2024 8:29 PM FARM MACHINERY ASSEMBLER us Whit Velasquez MD LAB BODY FLUIDS AND ST OOLS ORDERABLES Final Result [facility] (CLIA #:[id number]) [address] [place] [address] * Dexa Axial Skeleton Bone Density 1 or 2 Site (08/16/2024 11:07 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) Anatomical Region Laterality Modality Body N/A Digital Radiogra phy 08/16/2024 11:1 0 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 Impressions 08/16/2024 11:13 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 Low bone mass (osteopenia) which depending on [...] Jatin Benavides M.D. Narrative 08/16/2024 11:13 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 EXAM: Bone mineral density examination HISTORY: Postmenopausal. DXA BMD was done at [facility] on a [employer] W. Precision testing at this site has [...] HISTORY: Postmenopausal. DXA BMD was done at [facility] on a [employer] Horizon W. Precision testing at this site [...] Mammogram Bilateral W Silvio (08/16/2024 10:58 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) Anatomical Region Laterality Modality Breast Bilateral Mammography Narrative 08/30/2024 11:14 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 Examination: Screening Mammogram Bilateral W Silvio: 08/16/24 [...] for the left breast. Whit Velasquez MD G MAMMO PROCEDURES F inal Result from Last 3 Months or Most Recently Relevant to Health Maintenance Insurance MEDICARE [employer] [place] [employer]ICARE [employer] [place] MEDICARE [facility] [place] Care Teams Parts Room Clerk Relationship Specialty Start Date End Date Whit Velasquez MD [address] [facility] [address] [place] [address] PCP - General Internal Medicine 07/04/24 Bogdan Broderick MD Surgeon Colon and Rectal Surgery 06/06/18
--- OUTSIDE RECORDS SUMMARY | 2025-01-19 11:54 | XMS_ITS | Encounter Summary ---
Author Organization [facility] Healthcare Address [address] [place] [address] Care Team Providers Care Shipping And Receiving Assistant Name Role Phone Bogdan Broderick MD Unavailable [phone] Whit Velasquez MD Primary Care Provider Encounter Details Date Type Department Care Team (Late st Contact Info) Description 01/09/2025 Results Follow-Up [facility] Primary Care at [facility] [address] [address] [place] [phone] Whit Velasquez MD [address] [address] Social History Tobacco Use Types Packs/Day Years Used Date Smoking Tobacco: Former Cigarettes Q uit: 2000 Smokeless Tobacco: Never Alcohol Use Standard Drinks/Week Comments Yes 1 (1 standard drink = 0.6 oz pur e alcohol) social PHQ-2 Answer Date Recorded PHQ-2 Total Score (If total score is 3 or more points, staff should administer the PHQ-9) 0 01/08/2025 Comments No Sex and Gender Information Value Date Recorded Sex Assigned at Not on file Legal Sex Female 9:57 AM [employer]SH[employer] Gender Identity Female 11/13/2020 1:56 PM [employer] Sexual Orientation Straight 11/13/2020 1: 56 PM [employer] documented as of this encounter Plan of Treatment Scheduled Procedures Name Priority Associated Diagnoses Date/Ti me COLONOSCOPY Open Access Colon cancer screening documented as of this encounter Visit Diagnoses Not on filedocumented in this encounter Care Teams Shipping And Receiving Assistant Relationship Specialty Start Date End Date Whit Velasquez MD [address] [facility] [address] [place] [address] PCP - General Internal Medicine 07/04/24 Bogdan Broderick MD Surgeon Colon and Rectal Surgery 06/06/18 documented as of this encounter
--- OUTSIDE RECORDS SUMMARY | 2025-01-19 11:54 | XMS_ITS | Continuity of Care Document ---
Author Organization [facility] Address [id number] [place] [address] [place] [address] Phone Care Team Providers Care Food Writer Name Role Phone Joel Salmeron DO Unavailable Unavailable Advance Directives Directive Yes / No Effective Date File Name No Information Encounters Encounter Description Practice Location Reason(s) For Visit Diagnoses Date Provider Providers Copied on Encounter [facility], [address] [place], [place], [id number], [place] tel:[phone] [facility] No Information Faviola Plunkett. [address] [facility], [place], [address], [place]. tel: [phone] Family History Family Member Type Diagnosis Age At Onset No Information Payers Payer name Insurance type Covered libertarian ID Authoriza tidavid(s) [employer] SOI CI [id number] Social History Type Description Quantity Date Captured Comments Sex Female Smoking Status No Information Chief Complaint And Reason For Visit No Information Reason For Referral Reason For Referral No Information History Of Present Illness Encounter Date Complaint History Of Prese nt Illness No Information Functional Status Date Functional Assessmen t No Information Instructions Date Instruction Additional Infor mation No Information Assessments Type Assessment Date No Information Patient Care Teams Name Effective Dates (start - stop) Status Members No Information
== END 2025-01-19 11:34 | disposition home or self-care (01) ==
LOC: ANHLAB 11:00
PROVIDERS: PCP Family Medicine; Visit Provider Surgery Plastic and Reconstructive Surgery
DX: D48.5 Neoplasm of uncertain behavior of skin (principal)
CPT/HCPCS: 88305